=== PATIENT | male | born 1955 | race Caucasian/White ===

== ENCOUNTER 2016-08-10 11:48 | Inpatient (IN) | payer BC ==
[2016-08-10] MEDS ORDERED: NS 0.9% 1000 ML* 1,000 ML IV ONE (12:53)
[2016-08-10] MEDS ORDERED: Diltiazem IV* 5 MG/ML 5 ML VIAL (for loading dose/IV Push) (25 MG) IV SLOW PU ONE (12:57)
[2016-08-10 13:24] LABS: Hematocrit 44 % (42-52); Hemoglobin 14.5 g/dl (14.0-18.0); Mean Corpuscular HGB Conc 33 g/dl (31-36); Mean Corpuscular Hemoglobin 32 pg (27-31); Mean Corpuscular Volume 99 fL (80-94); Mean Platelet Volume 8 um3 (7.4-10.4); Red Blood Count 4.46 10^6/ul (4.0-5.4); Red Cell Distribution Width 14 % (10.5-15); White Blood Count 6.5 10^3/ul (3.5-10.8)
[2016-08-10 13:41] LABS: Albumin 4.3 g/dL (3.2-5.2); BUN/Creatinine Ratio 12.8 (8-20); C Reactive Protein 3.74 mg/L (< 5.00); Calcium 9.5 mg/dL (8.6-10.3); EGFR African American 81.8 (>60); EGFR Non-African American 63.6 (>60); Globulin 2.6 g/dL (2-4); Magnesium 2.2 mg/dL (1.9-2.7); Potassium 4.1 mmol/L (3.5-5.0); Total Bilirubin 1.2 mg/dL (0.2-1.0); Total Protein 6.9 g/dL (6.4-8.9)
--- NOTE | 2016-08-10 13:48 | RAD ---
Indication: Sternal, LEFT chest, and back pain. Former tobacco use. Comparison: October 09, 2014 CT abdomen Technique: Upright AP 1322 hours Report: Clear lungs and pleural spaces. Negative for pneumothorax. The heart, pulmonary vasculature, and mediastinal contours are unremarkable. Unremarkable osseous structures and soft tissue contours. IMPRESSION: No evidence for acute intrathoracic disease.
[2016-08-10] MEDS ORDERED: Metoprolol Tartrate IV* 1 MG/ML 5 ML VIAL IV ONE (14:52)
[2016-08-10] MEDS ORDERED: Acetaminophen TAB* 325 MG PO PRN (14:56)
[2016-08-10] MEDS ORDERED: Ondansetron INJ* 2 MG/ML VIAL IV PRN (14:56)
[2016-08-10] MEDS ORDERED: NS 0.9% 1000 ML* 1,000 ML IV SCH (15:00)
[2016-08-10] MEDS ORDERED: Iohexol 350* (CONTRAST) 500 ML MDV IV ONE (15:03)
--- NOTE | 2016-08-10 15:35 | RAD ---
HISTORY: Shortness of breath COMPARISONS: None TECHNIQUE: Multiple contiguous axial CT scans of the chest were obtained after the administration of nonionic intravenous contrast, timed to the pulmonary arterial phase of contrast enhancement.. Coronal and sagittal multiplanar reformations are also submitted for review. FINDINGS: NECK AND THYROID: The lower neck and thyroid are unremarkable. CHEST WALL: There is no lower cervical, axillary, or supraclavicular lymphadenopathy by size criteria. HEART AND PERICARDIUM: The heart is unremarkable. AORTA AND PULMONARY VASCULATURE: There is no pulmonary arterial filling defect to suggest pulmonary embolism. There is no linear filling defect within the aorta to suggest aortic dissection for the phase of contrast demonstration. MEDIASTINUM: There is no mediastinal lymphadenopathy by size criteria. GANGA: There is no hilar lymphadenopathy by size criteria. AIRWAY AND ESOPHAGUS: The airway is unremarkable, without endobronchial filling defect. The esophagus is grossly normal. LUNG PARENCHYMA: The lungs are clear. PLEURA: No pleural abnormalities are noted. UPPER ABDOMEN: The upper abdomen is unremarkable. BONES AND SOFT TISSUES: Mild degenerative changes are noted OTHER: None. IMPRESSION: NO PULMONARY ARTERIAL FILLING DEFECT TO SUGGEST PULMONARY EMBOLISM
[2016-08-10] MEDS ORDERED: Metoprolol Tartrate IV* 1 MG/ML 5 ML VIAL IV PRN (15:53)
--- NOTE | 2016-08-10 16:24 | ED ---
Maral Enciso Auryana, scribed for Easton Combs MD on 08/10/16 at 1243 . Shortness of Breath - HPI Summary HPI Summary: 60 year old male presents with SOB starting 3 days ago. He states that he was walking up a steep hill while golfing and began to have leg fatigue and palpitations with mid upper stomach/lower chest pain. He believed it was indigestion- rested and improved but symptoms returned later that night and became worse - nausea, chills, diaphoretic, headache, and pain in upper back and left flank with increased fatigue. His symptoms lasted all day and improved over the next few days but today still has chest discomfort in the mid lower sternal area and mid upper back (2/10). PMHx is significant for HTN (no medications - but fluctuates) and prostate CA (stable) but denies any heart problems. FHx is significant is for HTN, and heart issues. Occasionally alcohol use but no history of tobacco or drug use. - History of Current Complaint Chief Complaint: EDShortnessOfBreath Time Seen by Provider: 08/10/16 12:53 Hx Obtained From: Patient Onset/Duration: Lasting Days, Still Present Timing: Constant Current Severity: Moderate Dyspnea At: Exertion Aggrevating Factors: Movement Associated Signs & Symptoms: Chills, Diaphoresis - Allergy/Home Medications Allergies/Adverse Reactions: Allergies Allergy/AdvReac Type Severity Reaction Status Date / Time No Known Allergies Allergy Verified 10/09/14 19:55 Home Medications: Home Medications Fexofenadine (NF) [Josey 180 (NF)] 180 mg PO DAILY PRN 08/10/16 [History Confirmed 08/10/16] PMH/Surg Hx/FS Hx/Imm Hx Endocrine/Hematology History: Denies: Hx Diabetes, Hx Thyroid Disease Cardiovascular History: Denies: Hx Hypertension Respiratory History: Denies: Hx Asthma, Hx Chronic Obstructive Pulmonary Disease (COPD) GI History: Denies: Hx Ulcer - Cancer History Cancer Type, Location and Year: PT HAS STAGE 1 prostate ca - no treatment yet, active observation 07/31 - Surgical History Surgery Procedure, Year, and Place: 2 hernia surgeries. meniscus surgeries Infectious Disease History: No Infectious Disease History: Denies: Hx Hepatitis, Hx Human Immunodeficiency Virus (HIV), History Other Infectious Disease, Traveled Outside the [place] in Last 30 Days - Family History Known Family History: Positive: Cardiac Disease - Social History Occupation: Employed Full-time, Retired Lives: With Family Alcohol Use: None Hx Substance Use: No Substance Use Type: Reports: None Hx Tobacco Use: No Smoking Status (MU): Never Smoked Tobacco Review of Systems Positive: Fatigue, Skin Diaphoresis. Negative: Fever Eyes: Negative ENT: Negative Positive: Palpitations, Chest Pain Positive: Shortness Of Breath Positive: Nausea Genitourinary: Negative Positive: Myalgia - upper back pain, flank Skin: Negative Positive: Headache Psychological: Normal All Other Systems Reviewed And Are Negative: Yes Physical Exam - Summary Physical Exam Summary: VITAL SIGNS: Reviewed. GENERAL: Patient is a well-developed and nourished male who is lying comfortable in the stretcher. Patient is not in any acute respiratory distress. HEAD AND FACE: No signs of trauma. No ecchymosis, hematomas or skull depressions. No sinus tenderness. EYES: PERRLA, EOMI x 2, No injected conjunctiva, no nystagmus. EARS: Hearing grossly intact. Ear canals and tympanic membranes are within normal limits. MOUTH: Oropharynx within normal limits. NECK: Supple, trachea is midline, no adenopathy, no JVD, no carotid bruit, no c- spine tenderness, neck with full ROM. CHEST: Symmetric, no tenderness at palpation LUNGS: Clear to auscultation bilaterally. No wheezing or crackles. CVS: Irregular rate and rhythm, S1 and S2 present, no murmurs or gallops appreciated. ABDOMEN: Soft, non-tender. No signs of distention. No rebound no guarding, and no masses palpated. Bowel sounds are normal. EXTREMITIES: FROM in all major joints, no edema, no cyanosis or clubbing. NEURO: Alert and oriented x 3. No acute neurological deficits. Speech is normal and follows commands. SKIN: Dry and warm Triage Information Reviewed: Yes Vital Signs On Initial Exam: Initial Vitals Temp Pulse Resp BP Pulse Ox 98.6 F 146 20 149/117 99 08/10/16 11:58 08/10/16 11:58 08/10/16 11:58 08/10/16 11:58 08/10/16 11:58 Vital Signs Reviewed: Yes Diagnostics - Vital Signs Vital Signs Temp Pulse Resp BP Pulse Ox 08/10/16 12:03 98.6 F 98 20 149/117 99 08/10/16 11:58 98.6 F 146 20 149/117 99 - Laboratory Lab Results: Lab Results 08/10/16 08/10/16 08/10/16 Range/Units 13:05 13:05 13:05 WBC 6.5 (3.5-10.8) 10^3/ul RBC 4.46 (4.0-5.4) 10^6/ul Hgb 14.5 (14.0-18.0) g/dl Hct 44 (42-52) % MCV 99 H (80-94) fL MCH 32 H (27-31) pg MCHC 33 (31-36) g/dl RDW 14 (10.5-15) % Plt Count 209 (150-450) 10^3/ul MPV 8 (7.4-10.4) um3 Neut % (Auto) 50.4 (38-83) % Lymph % (Auto) 34.4 (25-47) % [place] % (Auto) 10.0 H (1-9) % Eos % (Auto) 4.4 (0-6) % Baso % (Auto) 0.8 (0-2) % Absolute Neuts (auto) 3.3 (1.5-7.7) 10^3/ul Absolute Lymphs (auto) 2.2 (1.0-4.8) 10^3/ul Absolute Monos (auto) 0.6 (0-0.8) 10^3/ul Absolute Eos (auto) 0.3 (0-0.6) 10^3/ul Absolute Basos (auto) 0.1 (0-0.2) 10^3/ul Absolute Nucleated RBC 0.01 10^3/ul Nucleated RBC % 0.2 APTT 28.3 (26.0-36.3) seconds D-Dimer, Quantitative 261 H (Less Than 230) ng/mL Sodium 137 (133-145) mmol/L Potassium 4.1 (3.5-5.0) mmol/L Chloride 104 (101-111) mmol/L Carbon Dioxide 23 (22-32) mmol/L Anion Gap 10 (2-11) mmol/L BUN 15 (6-24) mg/dL Creatinine 1.17 (0.67-1.17) mg/dL Est GFR ( Amer) 81.8 (>60) Est GFR (Non-Af Amer) 63.6 (>60) BUN/Creatinine Ratio 12.8 (8-20) Glucose 91 (70-100) mg/dL Lactic Acid (0.5-2.0) mmol/L Calcium 9.5 (8.6-10.3) mg/dL Magnesium 2.2 (1.9-2.7) mg/dL Total Bilirubin 1.20 H (0.2-1.0) mg/dL AST 41 H (13-39) U/L ALT 65 H (7-52) U/L Alkaline Phosphatase 29 L (34-104) U/L Total Creatine Kinase 97 (10-223) U/L Troponin I 0.00 (<0.04) ng/mL C-Reactive Protein 3.74 (< 5.00) mg/L B-Natriuretic Peptide ( - 100) pg/mL Total Protein 6.9 (6.4-8.9) g/dL Albumin 4.3 (3.2-5.2) g/dL Globulin 2.6 (2-4) g/dL Albumin/Globulin Ratio 1.7 (1-3) Lipase 15 (11.0-82.0) U/L 08/10/16 08/10/16 Range/Units 13:05 13:05 WBC (3.5-10.8) 10^3/ul RBC (4.0-5.4) 10^6/ul Hgb (14.0-18.0) g/dl Hct (42-52) % MCV (80-94) fL MCH (27-31) pg MCHC (31-36) g/dl RDW (10.5-15) % Plt Count (150-450) 10^3/ul MPV (7.4-10.4) um3 Neut % (Auto) (38-83) % Lymph % (Auto) (25-47) % [place] % (Auto) (1-9) % Eos % (Auto) (0-6) % Baso % (Auto) (0-2) % Absolute Neuts (auto) (1.5-7.7) 10^3/ul Absolute Lymphs (auto) (1.0-4.8) 10^3/ul Absolute Monos (auto) (0-0.8) 10^3/ul Absolute Eos (auto) (0-0.6) 10^3/ul Absolute Basos (auto) (0-0.2) 10^3/ul Absolute Nucleated RBC 10^3/ul Nucleated RBC % APTT (26.0-36.3) seconds D-Dimer, Quantitative (Less Than 230) ng/mL Sodium (133-145) mmol/L Potassium (3.5-5.0) mmol/L Chloride (101-111) mmol/L Carbon Dioxide (22-32) mmol/L Anion Gap (2-11) mmol/L BUN (6-24) mg/dL Creatinine (0.67-1.17) mg/dL Est GFR ( Amer) (>60) Est GFR (Non-Af Amer) (>60) BUN/Creatinine Ratio (8-20) Glucose (70-100) mg/dL Lactic Acid 1.2 (0.5-2.0) mmol/L Calcium (8.6-10.3) mg/dL Magnesium (1.9-2.7) mg/dL Total Bilirubin (0.2-1.0) mg/dL AST (13-39) U/L ALT (7-52) U/L Alkaline Phosphatase (34-104) U/L Total Creatine Kinase (10-223) U/L Troponin I (<0.04) ng/mL C-Reactive Protein (< 5.00) mg/L B-Natriuretic Peptide 371 H ( - 100) pg/mL Total Protein (6.4-8.9) g/dL Albumin (3.2-5.2) g/dL Globulin (2-4) g/dL Albumin/Globulin Ratio (1-3) Lipase (11.0-82.0) U/L Result Diagrams: 08/10/16 13:05 08/10/16 13:05 Lab Statement: Any lab studies that have been ordered have been reviewed, and results considered in the medical decision making process. - Radiology CXR Xray Interpretation: No Acute Changes Radiology Interpretation Completed By: Radiologist - CT CTA CHEST CT Interpretation: No Acute Changes - IMPRESSION: NO PULMONARY ARTERIAL FILLING DEFECT TO SUGGEST PULMONARY EMBOLISM CT Interpretation Completed By: Radiologist - EKG 12:37 EKG Interpretation: a-fib at 137bpm Course/Dx - Course Assessment/Plan: 60 year old male presents with SOB starting 3 days ago. He states that he was walking up a steep hill while golfing and began to have leg fatigue and palpitations with mid upper stomach/lower chest pain. He believed it was indigestion- rested and improved but symptoms returned later that night and became worse - nausea, chills, diaphoresis, headache, and pain in upper back and left flank with increased fatigue. His symptoms lasted all day and improved over the next few days but today still has chest discomfort in the mid lower sternal area and mid upper back (2/10). PMHx is significant for HTN (no medications - but fluctuates) and prostate CA (stable) but denies any heart problems. FHx is significant is for HTN, and heart issues. Occasionally alcohol use but no history of tobacco or drug use. Blood test are found within normal limits except for increased LFTs and BNP 371. CXR no acute disease. EKG: Atrial fib w/ RVR. In the ED course he was given IVF and Cardizem. HR has decreased to 90s. I discuss my physical exam, findings and test results with Dr. Vogt from the hospitalist services and she agrees to admit patient to his services. Patient is hemodynamically stable alert and oriented x 3. - Diagnoses Provider Diagnoses: Atrial fib w/ RVR - Physician Notifications Discussed Care of Patient With: DR. VOGT Time Discussed With Above Provider: 13:57 - agrees to admit patient Instructed by Provider To: Admit As Observation Discharge - Discharge Plan Condition: Stable Disposition: ADMITTED TO [facility] The documentation as recorded by the Maral nur Auryana accurately reflects the service I personally performed and the decisions made by me, Easton Combs MD.
[2016-08-10] MEDS: Metoprolol Tartrate TAB* 25 MG PO SCH ×2 (16:36→21:08)
[2016-08-10] MEDS: Rivaroxaban TAB(*) 20 MG TAB PO SCH (16:36)
--- NOTE | 2016-08-10 22:03 | HP ---
HISTORY AND PHYSICAL: DATE OF ADMISSION: 08/10/16 PRIMARY CARE PROVIDER: Dr. Nugent. HEALTHCARE PROXY: His , Kateryna. CODE STATUS: Full. SOURCE OF INFORMATION: History obtained from interview with the patient and review of past medical records. RELIABILITY: Very good. CHIEF COMPLAINT: Dyspnea on exertion. HISTORY OF PRESENT ILLNESS: This is a 60-year-old man, past medical history including prostate cancer since 2010, undergoing active surveillance, no surgeries or other interventions, had been in his usual state of health until June 03, he traveled to [place], started noticing sensation of feeling " short winded" with increased dyspnea on exertion, was associated with sneezing at that time and he thought it was related to the pollen and change in the climate while being in [place]. Sensation of feeling short winded continued upon his return on June 13 and was associated with coughing; however, had some relief, although not complete resolution after starting Josey. He noted that the shortness of breath was worse with exertion and he he had increasing difficulty such that he became short of breath with walking 1 flight of stairs whereas previously, he was very active. Notes that he was skiing 4 to 5 days per week quite aggressively over the winter. On Tuesday, 2 days prior to presentation, he noticed worsening dyspnea on exertion while walking up the hill and golfing associated with epigastric pain. Lynx like indigestion overall with a sensation of feeling lousy and nausea. No lightheadedness or palpitations. Proceeded to go home. Did develop nausea and some sweats and chills, went to bed early around 2 p.m. and slept to 7 a.m. the next day which was the day prior to admission. The day prior to admission, he felt better and today he continued to feel better; however, did notice lower chest discomfort associated with pain under his left scapula. He notes that the pain is coming and going, sometimes better with exertion, but worse with walking up hills. In the emergency room, he was found in atrial fibrillation with rates up to 150 beats per minute. Hospitalist service was consulted for admission. PAST MEDICAL HISTORY: Includes: 1. Prostate cancer, ongoing active surveillance, diagnosed in 2010. 2. Herpes zoster. 3. Borderline hypertension, untreated. 4. Right torn meniscus. 5. Hernia repair, left and right. 6. Skin cancer including squamous cell carcinoma removed from his head and chest as well as basal cell carcinoma. MEDICATIONS: Josey. ALLERGIES: No known drug allergies. FAMILY HISTORY: Mother and father had hypertension. Father had CAD with 4- vessel bypass. He is in his 80s currently. SOCIAL HISTORY: Smoked for 25 years, 2 packs per day, quit 23 years prior. Drinks 4 to 6 alcoholic drinks per day, more on the weekends. 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 REVIEW OF SYSTEMS: As per HPI. Otherwise, all other review of systems negative. PHYSICAL EXAMINATION GENERAL: Sitting up in bed, interactive, pleasant, in no apparent distress. VITAL SIGNS: When seen by this author, 124/84, heart rate is oscillating between 90 and 140, respiratory rate is 16. T-max in the emergency room 98.6. 99% on room air. HEENT: Oropharynx is clear. Moist mucous membranes. Sclerae anicteric. NECK: Has JVD to the angle of the jaw. LUNGS: Clear to auscultation. HEART: He has irregularly irregular heart rate. Difficult to auscultate murmurs with rapid rate. ABDOMEN: Soft, nontender, nondistended. EXTREMITIES: Warm and well perfused. He has 1+ lower extremity edema. NEUROLOGIC: He has no apparent anxiety, agitation, or depression. LABORATORY DATA/DIAGNOSTIC STUDIES: Labs reviewed. D-dimer 261. White blood cell count 6.5, hemoglobin 14.5, MCV of 99, and platelets 209. Sodium 137, potassium 4.1, chloride 104, bicarb 23, BUN 15, creatinine 1.17, lactic acid 1.2. Total bilirubin 1.2, AST 41, ALT 65, alk phos 29. Troponin I of 0.00. Lipase is 15. Data reviewed. EKG: Atrial fibrillation, ventricular rate, 137 left axis. Good R- wave progression. No ST or T-wave changes. Chest x-ray: No evidence for acute intrathoracic disease. ASSESSMENT AND PLAN: This is a 60-year-old man presenting with dyspnea on exertion, found in atrial fibrillation with rapid ventricular response. Atrial fibrillation with rapid ventricular response: Received 20 mg of IV diltiazem with good control in the emergency room. Will receive additional IV metoprolol 5 mg now. Plan to continue p.o. medications, can admit to [address] [place] [address], will give additional IV metoprolol as needed with standing p.o. Toprol. I discussed with Dr. Slater. I will make the patient n.p.o. after midnight. Plan for a CHARLES cardioversion tomorrow if he remains in atrial fibrillation. Dyspnea on exertion: Maybe related to atrial fibrillation alone. Atrial fibrillation with decreasing pump function, pulmonary embolism, potentially underlying ischemic disease. We will check CTA at this time. Start Xarelto after dose can be ascertained based on presence or absence of pulmonary embolism. CHARLES tomorrow with potential cardioversion. No CHARLES performed. We will plan on transthoracic echocardiogram. If all of the above are negative, i.e., normal, pump function, no pulmonary embolism, can consider outpatient cardiac stress test. Hypertension: Currently will be controlled with rate controlling medications. DVT prophylaxis will be Xarelto. Code status: Full. [id number]/[facility] #: [id number] MTDD
--- NOTE | 2016-08-10 23:11 | CONS ---
CARDIOLOGY CONSULTATION: DATE OF CONSULT: 08/10/16 INDICATION FOR CONSULTATION: Atrial fibrillation. HISTORY OF PRESENT ILLNESS: The patient is a 60-year-old gentleman with a history of BPH who came to the emergency room because of chest pain. The patient states that over the last 4 months or so, he has been having slight increase in shortness of breath. He just feels like he is more short of breath when he goes out for golf and does other activities. However, this past Tuesday , he was out golfing. He was trying to walk up a hill at the golf course and became short of breath and had chest pain. He had chest pain the rest of the round and has been uncomfortable for the past couple of days. The patient states that he slept poorly on Tuesday night. He woke with the same mild chest discomfort and some increased shortness of breath with exertion. The patient stated that this chest discomfort was epigastric in origin. It did radiate around to his left side. It was more severe on Tuesday, but has been almost constant since Tuesday. The patient woke up this morning with the same discomfort and feeling short of breath and was instructed to come to the emergency room. On arrival to the emergency room, he was in atrial fibrillation with rapid ventricular response. He denied any history of palpitations. No lightheadedness or dizziness. No lower extremity edema. No orthopnea. PAST MEDICAL HISTORY: Unremarkable. Borderline hypertension and BPH. PAST SURGICAL HISTORY: None. OUTPATIENT MEDICATIONS: None. ALLERGIES: None. FAMILY HISTORY: No family history of early coronary artery disease or cardiac arrhythmia. SOCIAL HISTORY: Denies tobacco or alcohol use. He exercises on a regular basis. REVIEW OF SYSTEMS: Negative for fevers or chills. Negative for nausea or vomiting. Negative for changes in bowel or bladder habits. PHYSICAL EXAM: Vital signs: Height is 6 feet 1 inch, weight is 190 pounds, temperature 98.6, heart rate is 130, respiratory rate is 18, and blood pressure 149/97. HEENT: Sclerae anicteric. Oropharynx is pink without erythema. Neck : Carotids are 2+ without bruits. JVD is normal. Thyroid is normal. Cardiac Exam: Tachycardic. S1, S2 without any murmurs, rubs, or gallops. Lungs: Clear to auscultation bilaterally. No dullness to percussion. Abdomen: Soft, nontender, and nondistended with normoactive bowel sounds. Extremities show no edema. He has 2+ pulses throughout. The patient is awake, alert, and oriented. He moves all 4 extremities equally. DIAGNOSTIC STUDIES/LAB DATA: Chemistries within normal limits. BUN 15, creatinine 1.17. Troponin 0.0. BNP slightly elevated at 571. CBC within normal limits. EKG demonstrates atrial fibrillation with rapid ventricular response. IMPRESSION: A 60-year-old gentleman with a very little past medical history who came to the emergency room because of chest pain. He was found to be in atrial fibrillation with rapid ventricular response. The patient denied any episodes of palpitations. He denied any lightheadedness or dizziness. He denied any syncope. At this time, the patient is being admitted to the hospital. He is going to be started on Xarelto 20 mg a day. The patient will be scheduled for a transesophageal echocardiogram and cardioversion tomorrow morning. If his LV function is relatively normal, I would recommend starting Multaq on the patient. If his LV function is depressed, I would recommend amiodarone. CC: Bonilla Nugent MD* [id number]/[facility] #: [id number] MTDD
[2016-08-11 01:56] LABS: Urine Bilirubin Negative (Negative); Urine Glucose Negative (Negative); Urine Nitrite Negative (Negative)
[2016-08-11] MEDS: Metoprolol Tartrate TAB* 25 MG PO SCH ×4 (03:04→22:08)
[2016-08-11] MEDS ORDERED: Midazolam* 1 MG/ML 5 ML VIAL (5 MG) ONE (09:54)
[2016-08-11] MEDS ORDERED: fentaNYL* 50 MCG/ML 2 ML VIAL (100 MCG VIAL) ONE (09:55)
[2016-08-11] MEDS ORDERED: Flumazenil* 0.1 MG/ML 5 ML MDV ONE (09:55)
[2016-08-11] MEDS ORDERED: Naloxone* 0.4 MG/ML 1 ML VIAL ONE (09:55)
[2016-08-11] MEDS ORDERED: Lidocaine 2% VISCOUS* 15 ML UDC ONE (09:56)
--- NOTE | 2016-08-11 10:59 | PN ---
Subjective Date of Service: 08/11/16 - CC: SOB Interval History: Breathing was better than admission, no new c/o. Comfortable at rest. Medications Active Medications: Acetaminophen (Tylenol Tab*) 650 mg PO Q4H PRN PRN Reason: FEVER/PAIN Sodium Chloride (Ns 0.9% 1000 Ml*) 1,000 mls @ 100 mls/hr IV PER RATE [facility] Last Admin: 08/11/16 03:03 Dose: 100 mls/hr Metoprolol Tartrate (Lopressor Tab*) 25 mg PO Q6H [facility] Last Admin: 08/11/16 03:04 Dose: 25 mg Metoprolol Tartrate (Lopressor Iv*) 5 mg IV Q6H PRN PRN Reason: TACHYCARDIA Ondansetron HCl (Zofran Inj*) 4 mg IV Q4H PRN PRN Reason: NAUSEA/VOMITING Rivaroxaban (Xarelto (*)) 20 mg PO DAILY@1700 [facility] Last Admin: 08/10/16 16:36 Dose: 20 mg Objective Vital Signs: Temp Pulse Resp BP Pulse Ox 98.2 F 152 16 113/82 95 08/11/16 07:22 08/11/16 07:22 08/11/16 08:00 08/11/16 07:22 08/11/16 07:22 Appearance: fit appearing older middle aged gentleman, in no acute distress, lying at 20 degrees comfortabley. Eyes: No Scleral Icterus, PERRLA Ears/Nose/Mouth/Throat: Clear Oropharnyx, Mucous Membranes Moist Neck: NL Appearance and Movements; NL JVP Respiratory: Symmetrical Chest Expansion and Respiratory Effort, Clear to Auscultation Cardiovascular: - - Irregularly irregular and tachycardic. Abdominal: NL Sounds; No Tenderness; No Distention, No Hepatosplenomegaly Extremities: No Edema, No Clubbing, Cyanosis Skin: No Rash or Ulcers Neurological: Alert and Oriented x 3, NL Muscle Strength and Tone Lines/Tubes/Other Access: Clean, Dry and Intact Peripheral IV Laboratory Results: APTT 28.3 seconds (26.0-36.3) 08/10/16 13:05 Total Bilirubin 1.20 mg/dL (0.2-1.0) H 08/10/16 13:05 AST 41 U/L (13-39) H 08/10/16 13:05 ALT 65 U/L (7-52) H 08/10/16 13:05 Alkaline Phosphatase 29 U/L (34-104) L 08/10/16 13:05 B-Natriuretic Peptide 371 pg/mL (-100) H 08/10/16 13:05 Total Protein 6.9 g/dL (6.4-8.9) 08/10/16 13:05 Albumin 4.3 g/dL (3.2-5.2) 08/10/16 13:05 Globulin 2.6 g/dL (2-4) 08/10/16 13:05 Albumin/Globulin Ratio 1.7 (1-3) 08/10/16 13:05 08/10/16 08/10/16 16:35 19:14 Troponin I 0.00 0.00 Diagnostic Imaging: CHARLES (transesophogeal echo): EF 25%, global hypokinesis, mild to mod MR and TR, no clot in LA appendage. EKG Data: Monitor: Afib, RVR 100-115 bpm, post electrical CV NSR 75 bpm. Assessment/Plan 60 yo male with afib, RVR uncertain duration, based on history possibly since May, s/p CHARLES guided cardioversion today, succesful, newly diagnosed severe cardiomyopathy. Points of Discussion: Paroxysmal atrial fibrillation: Continue Xarelto for asymptomatic afib. He may benefit from an antiarrhythmic, Multaq or amiodarone safe for low EF however LFT's mildly increased (CHF and/or EtOH are risks). CM: Most likely tachycardic induced but there is a large differential. Continue metoprolol, long acting best, can convert to QAM. Add ACEI today, consider Zestril 5 mg qhs. I discussed avoidance of alcohol with him. He snores, but no apnea history (per ), good energy levels so I don't feel sleep referral needed now. Option of overnight oximetry screen in or out patient. As troponins negative, OK for outpatient ischemic workup, and his EF may improve with rhythm and rate control.
--- NOTE | 2016-08-11 11:41 | PN ---
Subjective Date of Service: 08/11/16 Interval History: Patient seen and examined at bedside. He is still somewhat drowsy following sedation from his cardioversion. Denies CP, SOB, dizziness, palpitations. No complaints. at bedside. Family History: Unchanged from Admission Social History: Unchanged from Admission Past Medical History: Unchanged from Admission Objective Active Medications: Acetaminophen (Tylenol Tab*) 650 mg PO Q4H PRN PRN Reason: FEVER/PAIN Sodium Chloride (Ns 0.9% 1000 Ml*) 1,000 mls @ 100 mls/hr IV PER RATE [facility] Last Admin: 08/11/16 03:03 Dose: 100 mls/hr Lisinopril (Prinivil Tab*) 5 mg PO BEDTIME [facility] Metoprolol Succinate (Toprol Xl Tab*) 100 mg PO DAILY [facility] Metoprolol Tartrate (Lopressor Tab*) 25 mg PO Q6H [facility] Stop: 08/12/16 00:00 Last Admin: 08/11/16 03:04 Dose: 25 mg Metoprolol Tartrate (Lopressor Iv*) 5 mg IV Q6H PRN PRN Reason: TACHYCARDIA Ondansetron HCl (Zofran Inj*) 4 mg IV Q4H PRN PRN Reason: NAUSEA/VOMITING Rivaroxaban (Xarelto (*)) 20 mg PO DAILY@1700 [facility] Last Admin: 08/10/16 16:36 Dose: 20 mg Vital Signs 08/10/16 08/10/16 08/10/16 15:00 15:18 15:29 Temperature 98.6 F Pulse Rate 53 98 Respiratory 18 20 Rate Blood Pressure 143/97 149/117 137/105 (mmHg) O2 Sat by Pulse 98 99 Oximetry 08/10/16 08/10/16 08/10/16 15:30 15:31 16:00 Temperature Pulse Rate 98 73 Respiratory 18 18 Rate Blood Pressure 130/89 118/93 (mmHg) O2 Sat by Pulse 97 97 Oximetry 08/10/16 08/10/16 08/10/16 16:18 19:52 20:00 Temperature 99.2 F 98.4 F Pulse Rate 90 62 Respiratory 18 18 16 Rate Blood Pressure 131/92 137/92 (mmHg) O2 Sat by Pulse 100 98 Oximetry 08/10/16 08/11/16 08/11/16 23:36 03:43 04:49 Temperature 98.5 F 98.1 F Pulse Rate 65 71 Respiratory 16 16 16 Rate Blood Pressure 122/81 126/89 (mmHg) O2 Sat by Pulse 99 94 Oximetry 08/11/16 08/11/16 07:22 08:00 Temperature 98.2 F Pulse Rate 152 Respiratory 20 16 Rate Blood Pressure 113/82 (mmHg) O2 Sat by Pulse 95 Oximetry Oxygen Devices in Use Now: None Appearance: Male patient, lying in bed, NAD Eyes: PERRLA Ears/Nose/Mouth/Throat: Mucous Membranes Moist Neck: NL Appearance and Movements; NL JVP Respiratory: Symmetrical Chest Expansion and Respiratory Effort, Clear to Auscultation Cardiovascular: NL Sounds; No Murmurs; No JVD, RRR Abdominal: NL Sounds; No Tenderness; No Distention Extremities: No Edema Neurological: - - drowsy but oriented x 3 Lines/Tubes/Other Access: Clean, Dry and Intact Peripheral IV Nutrition: Taking PO's Result Diagrams: 08/10/16 13:05 08/10/16 13:05 Additional Lab and Data: Lab Results 08/10/16 08/10/16 08/10/16 Range/Units 13:05 13:05 13:05 WBC 6.5 (3.5-10.8) 10^3/ul RBC 4.46 (4.0-5.4) 10^6/ul Hgb 14.5 (14.0-18.0) g/dl Hct 44 (42-52) % MCV 99 H (80-94) fL MCH 32 H (27-31) pg MCHC 33 (31-36) g/dl RDW 14 (10.5-15) % Plt Count 209 (150-450) 10^3/ul MPV 8 (7.4-10.4) um3 Neut % (Auto) 50.4 (38-83) % Lymph % (Auto) 34.4 (25-47) % [place] % (Auto) 10.0 H (1-9) % Eos % (Auto) 4.4 (0-6) % Baso % (Auto) 0.8 (0-2) % Absolute Neuts (auto) 3.3 (1.5-7.7) 10^3/ul Absolute Lymphs (auto) 2.2 (1.0-4.8) 10^3/ul Absolute Monos (auto) 0.6 (0-0.8) 10^3/ul Absolute Eos (auto) 0.3 (0-0.6) 10^3/ul Absolute Basos (auto) 0.1 (0-0.2) 10^3/ul Absolute Nucleated RBC 0.01 10^3/ul Nucleated RBC % 0.2 APTT 28.3 (26.0-36.3) seconds D-Dimer, Quantitative 261 H (Less Than 230) ng/mL Sodium 137 (133-145) mmol/L Potassium 4.1 (3.5-5.0) mmol/L Chloride 104 (101-111) mmol/L Carbon Dioxide 23 (22-32) mmol/L Anion Gap 10 (2-11) mmol/L BUN 15 (6-24) mg/dL Creatinine 1.17 (0.67-1.17) mg/dL Est GFR ( Amer) 81.8 (>60) Est GFR (Non-Af Amer) 63.6 (>60) BUN/Creatinine Ratio 12.8 (8-20) Glucose 91 (70-100) mg/dL Lactic Acid (0.5-2.0) mmol/L Calcium 9.5 (8.6-10.3) mg/dL Magnesium 2.2 (1.9-2.7) mg/dL Total Bilirubin 1.20 H (0.2-1.0) mg/dL AST 41 H (13-39) U/L ALT 65 H (7-52) U/L Alkaline Phosphatase 29 L (34-104) U/L Total Creatine Kinase 97 (10-223) U/L Troponin I 0.00 (<0.04) ng/mL C-Reactive Protein 3.74 (< 5.00) mg/L B-Natriuretic Peptide ( - 100) pg/mL Total Protein 6.9 (6.4-8.9) g/dL Albumin 4.3 (3.2-5.2) g/dL Globulin 2.6 (2-4) g/dL Albumin/Globulin Ratio 1.7 (1-3) Lipase 15 (11.0-82.0) U/L 08/10/16 08/10/16 Range/Units 13:05 13:05 WBC (3.5-10.8) 10^3/ul RBC (4.0-5.4) 10^6/ul Hgb (14.0-18.0) g/dl Hct (42-52) % MCV (80-94) fL MCH (27-31) pg MCHC (31-36) g/dl RDW (10.5-15) % Plt Count (150-450) 10^3/ul MPV (7.4-10.4) um3 Neut % (Auto) (38-83) % Lymph % (Auto) (25-47) % [place] % (Auto) (1-9) % Eos % (Auto) (0-6) % Baso % (Auto) (0-2) % Absolute Neuts (auto) (1.5-7.7) 10^3/ul Absolute Lymphs (auto) (1.0-4.8) 10^3/ul Absolute Monos (auto) (0-0.8) 10^3/ul Absolute Eos (auto) (0-0.6) 10^3/ul Absolute Basos (auto) (0-0.2) 10^3/ul Absolute Nucleated RBC 10^3/ul Nucleated RBC % APTT (26.0-36.3) seconds D-Dimer, Quantitative (Less Than 230) ng/mL Sodium (133-145) mmol/L Potassium (3.5-5.0) mmol/L Chloride (101-111) mmol/L Carbon Dioxide (22-32) mmol/L Anion Gap (2-11) mmol/L BUN (6-24) mg/dL Creatinine (0.67-1.17) mg/dL Est GFR ( Amer) (>60) Est GFR (Non-Af Amer) (>60) BUN/Creatinine Ratio (8-20) Glucose (70-100) mg/dL Lactic Acid 1.2 (0.5-2.0) mmol/L Calcium (8.6-10.3) mg/dL Magnesium (1.9-2.7) mg/dL Total Bilirubin (0.2-1.0) mg/dL AST (13-39) U/L ALT (7-52) U/L Alkaline Phosphatase (34-104) U/L Total Creatine Kinase (10-223) U/L Troponin I (<0.04) ng/mL C-Reactive Protein (< 5.00) mg/L B-Natriuretic Peptide 371 H ( - 100) pg/mL Total Protein (6.4-8.9) g/dL Albumin (3.2-5.2) g/dL Globulin (2-4) g/dL Albumin/Globulin Ratio (1-3) Lipase (11.0-82.0) U/L Assess/Plan/Problems-Billing Assessment: Mr. Dial is a 60 yo male with a PMH of prostate cancer, borderline HTN, and herpes zoster, who presented to the ED on 08/10 with concern for dyspnea with exertion; in the ED, patient was found to be in afib with RVR. - Patient Problems (1) Atrial fibrillation with rapid ventricular response Code(s): I48.91 - UNSPECIFIED ATRIAL FIBRILLATION Comment: S/p cardioversion today, now in sinus rhythm Continue Xarelto, metoprolol (will switch to long-acting in AM) Cardiology recommends anti-arrhythmic, either Multaq or Amiodarone Will initiate once patient is alert enough to understand benefits and risks of each medication. (2) Dyspnea on exertion Code(s): R06.09 - OTHER FORMS OF DYSPNEA Comment: Patient with cardiomyopathy CHARLES shows EF 25%, global hypokinesis, mild to mod MR and TR Continue beta-zonia, start LISETH-I Outpatient cardiology follow-up, ischemic workup as outpatient. Check overnight oximetry to eval for SERENA CTA negative for PE (3) HTN (hypertension) Code(s): I10 - ESSENTIAL (PRIMARY) HYPERTENSION Comment: Not previously on medication Controlled with metoprolol Continue to monitor with addition of Zestril this evening. (4) Prostate cancer Code(s): C61 - MALIGNANT NEOPLASM OF PROSTATE Comment: Continue outpatient f/u. (5) DVT prophylaxis Code(s): DGH6366 - Comment: Xarelto Status and Disposition: Inpatient. D/c to home, potentially tomorrow.
--- NOTE | 2016-08-11 11:41 | TEE ---
Patient: DANILO CASTAÑEDA [facility] Rec#: [id number] : 1955 Date: 08/11/2016 Age: 60y Height: 186 cm / 73.2 in Weight: 86 kg / 189.5 lbs Sex: M BSA: 2.11 Room#: 432 Admit Date#: 08/10/2016 Type: Inpatient Referring: Jose Manuel Slater MD Performing: Ángela Pino MD Reading: Ángela Pino MD [employer] Professor: Shweta Rodriguez RDCS,RDMS Nurse: Willow Garcia RN Transesophageal Echocardiogram Indication: AFIB BP: 134/86 HR: 122 Rhythm: A-Fib Findings History: HTN, SOB, CP, ETOH Technical Comments: The study quality is good. Left Ventricle: The left ventricular chamber size is normal. There is severely decreased left ventricular systolic function. The estimated ejection fraction is 20-25%. The assessment of diastolic function is non-diagnostic. Left Atrium: The left atrium is mild to moderately dilated. The left atrial appendage velocity is normal. There is no thrombus visualized in the left atrial appendage. Right Ventricle: The right ventricular cavity size is normal. The right ventricular global systolic function is moderately reduced. Right Atrium: The right atrium is mild to moderately dilated. A patent foramen ovale is not demonstrated with color Doppler and agitated contrast. Aortic Valve: The aortic valve is trileaflet. There is no evidence of aortic valve thickening. There is aortic annular calcification. There is no evidence of aortic regurgitation. There is no evidence of aortic stenosis. Mitral Valve: There is mitral annular calcification. The mitral valve leaflets are mildly thickened. There is mild to moderate mitral regurgitation. There is no evidence of mitral stenosis. Tricuspid Valve: The tricuspid valve leaflets are normal. There is mild to moderate tricuspid regurgitation. No pulmonary hypertension is noted. Pulmonic Valve: The pulmonic valve appears normal. There is a trace pulmonic regurgitation. Pericardium: There is no significant pericardial effusion. Aorta: There is no dilatation of the ascending aorta. There is mild dilatation of the aortic root. Pulmonary Artery: The main pulmonary artery appears normal. Venous: The inferior vena cava appears normal. The flow pattern of the pulmonary veins appear normal. 3 out of 4 well visualized The superior vena cava appears normal. CHARLES Procedures: All standard views were attempted within the limitations of patient tolerance and safety. History and physical as well as labs were reviewed. The patient was in a fasting state. Risks and benefits of the procedure, including alternatives, were discussed and written informed consent was obtained. The patient and/or their health care field service representative expressed understanding of the procedure, risks and benefits. Baseline and continuous monitoring of blood pressure, heart rate, pulse oximetry and heart rhythm was performed throughout the procedure. The appropriate time-out procedure was performed as per [facility] protocol. The patient was placed in the left lateral decubitus position. The patient's posterior pharynx was anesthetized with 20ml of 2% viscous lidocaine. The patient received IV Midazolam with a total dose of 8 mg The patient received IV Fentanyl with a total dose of 75 mcg An oral bite block was inserted for protection of oral dentition. The multiplane transesophageal echocardiogram probe was inserted through the posterior oropharynx and advanced into the esophagus without difficulty. Multiple 2D images were obtained of the heart and its related structures. Color flow Doppler was used for evaluation. Spectral Doppler was also used. The atrial septum was interrogated with color flow Doppler. At the conclusion of the procedure the probe was removed with continuous suction without complications. The patient tolerated the procedure with no apparent complications. Contrast: Intravenous agitated saline contrast was used to assess intracardiac shunting. Image 45 Conclusions There is severely decreased left ventricular systolic function, global hypokinesis. The estimated ejection fraction is 20-25%. The right ventricular global systolic function is moderately reduced globally. The left atrium is mild to moderately dilated. The right atrium is mild to moderately dilated. The aortic valve is trileaflet, normal structure and function. There is mild to moderate mitral regurgitation. There is mild to moderate tricuspid regurgitation. No pulmonary hypertension is noted, may be underestimated. No prior echo to compare. The patient was in atrial fibrillation throughout the study. Measurements Name Value Normal Range Aortic Annulus 2.1 cm (1.4 - 2.6) Ao root diameter (2D) 3.8 cm (2.1 - 3.5) Ascending Ao 3.4 cm (2.1 - 3.4) Name Value Normal Range MV E-wave Vmax 0.6 m/sec - MV deceleration time 78 msec - Name Value Normal Range TR Vmax 2.1 m/sec - TR peak gradient 18 mmHg - RAP 3 mmHg - RVSP 21 mmHg -
[2016-08-11] MEDS: Rivaroxaban TAB(*) 20 MG TAB PO SCH (17:40)
--- NOTE | 2016-08-11 18:24 | PN ---
Hospitalist Progress Note Spoke with patient and , Kateryna, at length about atrial fibrillation and cardiomyopathy. Both were able to verbalize understanding of condition and medications. Patient was advised not to drink and concern was expressed for his LFTs. The patient recognizes that alcohol cessation is important and is willing to commit to this. Patient in agreement with amiodarone and will start this evening. Side effect profile reviewed. Risks and benefits of Xarelto also reviewed and risk of bleeding vs. stroke risk in asymptomatic atrial fibrillation also discussed. Patient verbalized understanding of all of this. Patient denies any acute complaints. Continue to monitor. Amiodarone started at 200 mg BID, which I did confirm with on-call sheet heater, Dr. Puga. 25 minutes spent in discussion and teaching.
[2016-08-11] MEDS: Lisinopril TAB* 5 MG PO SCH (20:59)
[2016-08-11] MEDS: Amiodarone TAB* 200 MG PO SCH (20:59)
--- NOTE | 2016-08-11 23:32 | CARD ---
CC: Dr. Slater; Primary Care Physician PROCEDURE REPORT: DATE OF PROCEDURE: 08/11/16 PROCEDURE: Electrical cardioversion. PREPROCEDURE DIAGNOSIS: Atrial fibrillation. POSTPROCEDURE DIAGNOSIS: Atrial fibrillation. INDICATION: The patient throughout both transesophageal echo and cardioversion received a total of 10 mg of Versed and 75 mcg of fentanyl. The transesophageal echo was done and documented separately but no evidence of thrombus in the left atrial appendage was noted (ejection fraction 25%). A deci jackie was made to proceed with electrical cardioversion. DESCRIPTION OF PROCEDURE: AP patches were placed and 150 joules was synchronously delivered across the chest wall with successful cardioversion. Currently, the patient is in sinus rhythm at 72 beats a minute with a blood pressure of 125/77, sats 94% on 2 L. He was hemodynamically stable throughou t both procedures and there were no complications. CONCLUSION: Successful cardioversion from atrial fibrillation and rapid ventricular rate to normal sinus rhythm. [id number]/[facility] #: [id number]
[2016-08-12 06:22] LABS: Calcium 8.2 mg/dL (8.6-10.3); EGFR African American 71.8 (>60); EGFR Non-African American 55.8 (>60); Potassium 3.9 mmol/L (3.5-5.0)
[2016-08-12] MEDS ORDERED: Potassium Chlor TAB* 20 MEQ TAB.ER PO ONE (07:46)
[2016-08-12] MEDS ORDERED: Metoprolol Succinate XL TAB* 100 MG PO SCH (09:00)
--- NOTE | 2016-08-12 09:46 | PN ---
Subjective Date of Service: 08/12/16 Interval History: Patient seen and examined at bedside. Patient expressed concern for "red blotchiness to neck and upper chest." He denies itching, swelling, pain, or difficulty breathing. Denies CP, fever/ chills. He does endorse getting "a lot of sun" and "a little sunburn" over last weekend. There is a white patch in the folds of his neck with surrounding redness, which is an area that does not receive sun exposure. He does not endorse any other complaints. Skin examined by myself and with attending Dr. Ozuna. Telemetry: SR 60s Family History: Unchanged from Admission Social History: Unchanged from Admission Past Medical History: Unchanged from Admission Objective Active Medications: Acetaminophen (Tylenol Tab*) 650 mg PO Q4H PRN PRN Reason: FEVER/PAIN Amiodarone HCl (Cordarone Tab*) 200 mg PO BID [facility] Last Admin: 08/11/16 20:59 Dose: 200 mg Lisinopril (Prinivil Tab*) 5 mg PO BEDTIME [facility] Last Admin: 08/11/16 20:59 Dose: 5 mg Metoprolol Succinate (Toprol Xl Tab*) 100 mg PO DAILY [facility] Metoprolol Tartrate (Lopressor Iv*) 5 mg IV Q6H PRN PRN Reason: TACHYCARDIA Ondansetron HCl (Zofran Inj*) 4 mg IV Q4H PRN PRN Reason: NAUSEA/VOMITING Rivaroxaban (Xarelto (*)) 20 mg PO DAILY@1700 [facility] Last Admin: 08/11/16 17:40 Dose: 20 mg Vital Signs 08/11/16 08/11/16 08/11/16 12:15 13:01 14:23 Temperature 97.7 F 97.3 F 98.0 F Pulse Rate 73 68 86 Respiratory 16 20 16 Rate Blood Pressure 122/81 121/79 128/72 (mmHg) O2 Sat by Pulse 99 100 98 Oximetry 08/11/16 08/11/16 08/11/16 16:01 19:13 20:00 Temperature 97.7 F 98.1 F Pulse Rate 75 69 Respiratory 18 16 18 Rate Blood Pressure 123/80 115/89 (mmHg) O2 Sat by Pulse 98 99 Oximetry 08/11/16 08/11/16 08/11/16 21:01 22:05 23:46 Temperature 98.2 F 97.7 F Pulse Rate 72 80 72 Respiratory 18 16 Rate Blood Pressure 138/91 121/73 117/86 (mmHg) O2 Sat by Pulse 99 96 Oximetry 08/12/16 08/12/16 08/12/16 03:31 07:43 08:00 Temperature 97.4 F 98.1 F Pulse Rate 61 61 Respiratory 16 16 16 Rate Blood Pressure 93/58 106/67 (mmHg) O2 Sat by Pulse 93 98 Oximetry Oxygen Devices in Use Now: None Appearance: Male patient, sitting in chair, watching TV, NAD Eyes: PERRLA Ears/Nose/Mouth/Throat: Mucous Membranes Moist Neck: NL Appearance and Movements; NL JVP Respiratory: Symmetrical Chest Expansion and Respiratory Effort, Clear to Auscultation Cardiovascular: NL Sounds; No Murmurs; No JVD, RRR Abdominal: NL Sounds; No Tenderness; No Distention Extremities: No Edema Skin: - - Patient with blanchable redness and discoloration to neck and chest. Skin is smooth, no tenderness or blistering noted. No wheals or urticaria noted. Neurological: Alert and Oriented x 3, NL Muscle Strength and Tone Lines/Tubes/Other Access: Clean, Dry and Intact Peripheral IV Nutrition: Taking PO's Result Diagrams: 08/10/16 13:05 08/12/16 05:37 Additional Lab and Data: Lab Results 08/10/16 08/10/16 08/10/16 Range/Units 13:05 13:05 13:05 WBC 6.5 (3.5-10.8) 10^3/ul RBC 4.46 (4.0-5.4) 10^6/ul Hgb 14.5 (14.0-18.0) g/dl Hct 44 (42-52) % MCV 99 H (80-94) fL MCH 32 H (27-31) pg MCHC 33 (31-36) g/dl RDW 14 (10.5-15) % Plt Count 209 (150-450) 10^3/ul MPV 8 (7.4-10.4) um3 Neut % (Auto) 50.4 (38-83) % Lymph % (Auto) 34.4 (25-47) % Person % (Auto) 10.0 H (1-9) % Eos % (Auto) 4.4 (0-6) % Baso % (Auto) 0.8 (0-2) % Absolute Neuts (auto) 3.3 (1.5-7.7) 10^3/ul Absolute Lymphs (auto) 2.2 (1.0-4.8) 10^3/ul Absolute Monos (auto) 0.6 (0-0.8) 10^3/ul Absolute Eos (auto) 0.3 (0-0.6) 10^3/ul Absolute Basos (auto) 0.1 (0-0.2) 10^3/ul Absolute Nucleated RBC 0.01 10^3/ul Nucleated RBC % 0.2 APTT 28.3 (26.0-36.3) seconds D-Dimer, Quantitative 261 H (Less Than 230) ng/mL Sodium 137 (133-145) mmol/L Potassium 4.1 (3.5-5.0) mmol/L Chloride 104 (101-111) mmol/L Carbon Dioxide 23 (22-32) mmol/L Anion Gap 10 (2-11) mmol/L BUN 15 (6-24) mg/dL Creatinine 1.17 (0.67-1.17) mg/dL Est GFR ( Amer) 81.8 (>60) Est GFR (Non-Af Amer) 63.6 (>60) BUN/Creatinine Ratio 12.8 (8-20) Glucose 91 (70-100) mg/dL Lactic Acid (0.5-2.0) mmol/L Calcium 9.5 (8.6-10.3) mg/dL Magnesium 2.2 (1.9-2.7) mg/dL Total Bilirubin 1.20 H (0.2-1.0) mg/dL AST 41 H (13-39) U/L ALT 65 H (7-52) U/L Alkaline Phosphatase 29 L (34-104) U/L Total Creatine Kinase 97 (10-223) U/L Troponin I 0.00 (<0.04) ng/mL C-Reactive Protein 3.74 (< 5.00) mg/L B-Natriuretic Peptide ( - 100) pg/mL Total Protein 6.9 (6.4-8.9) g/dL Albumin 4.3 (3.2-5.2) g/dL Globulin 2.6 (2-4) g/dL Albumin/Globulin Ratio 1.7 (1-3) Lipase 15 (11.0-82.0) U/L 08/10/16 08/10/16 Range/Units 13:05 13:05 WBC (3.5-10.8) 10^3/ul RBC (4.0-5.4) 10^6/ul Hgb (14.0-18.0) g/dl Hct (42-52) % MCV (80-94) fL MCH (27-31) pg MCHC (31-36) g/dl RDW (10.5-15) % Plt Count (150-450) 10^3/ul MPV (7.4-10.4) um3 Neut % (Auto) (38-83) % Lymph % (Auto) (25-47) % Person % (Auto) (1-9) % Eos % (Auto) (0-6) % Baso % (Auto) (0-2) % Absolute Neuts (auto) (1.5-7.7) 10^3/ul Absolute Lymphs (auto) (1.0-4.8) 10^3/ul Absolute Monos (auto) (0-0.8) 10^3/ul Absolute Eos (auto) (0-0.6) 10^3/ul Absolute Basos (auto) (0-0.2) 10^3/ul Absolute Nucleated RBC 10^3/ul Nucleated RBC % APTT (26.0-36.3) seconds D-Dimer, Quantitative (Less Than 230) ng/mL Sodium (133-145) mmol/L Potassium (3.5-5.0) mmol/L Chloride (101-111) mmol/L Carbon Dioxide (22-32) mmol/L Anion Gap (2-11) mmol/L BUN (6-24) mg/dL Creatinine (0.67-1.17) mg/dL Est GFR ( Amer) (>60) Est GFR (Non-Af Amer) (>60) BUN/Creatinine Ratio (8-20) Glucose (70-100) mg/dL Lactic Acid 1.2 (0.5-2.0) mmol/L Calcium (8.6-10.3) mg/dL Magnesium (1.9-2.7) mg/dL Total Bilirubin (0.2-1.0) mg/dL AST (13-39) U/L ALT (7-52) U/L Alkaline Phosphatase (34-104) U/L Total Creatine Kinase (10-223) U/L Troponin I (<0.04) ng/mL C-Reactive Protein (< 5.00) mg/L B-Natriuretic Peptide 371 H ( - 100) pg/mL Total Protein (6.4-8.9) g/dL Albumin (3.2-5.2) g/dL Globulin (2-4) g/dL Albumin/Globulin Ratio (1-3) Lipase (11.0-82.0) U/L Assess/Plan/Problems-Billing Assessment: Mr. Dial is a 60 yo male with a PMH of prostate cancer, borderline HTN, and herpes zoster, who presented to the ED on 08/10 with concern for dyspnea with exertion; in the ED, patient was found to be in afib with RVR. - Patient Problems (1) Atrial fibrillation with rapid ventricular response Code(s): I48.91 - UNSPECIFIED ATRIAL FIBRILLATION Comment: S/p cardioversion 08/12, now in sinus rhythm Continue Xarelto, metoprolol, and amiodarone. Patient's skin is not consistent with medication rash, and he does not endorse any pruritis, blistering, or pain. Skin is blanchable and consistent with sun exposure. Patient advised not to drink alcohol. (2) Dyspnea on exertion Code(s): R06.09 - OTHER FORMS OF DYSPNEA Comment: Patient with cardiomyopathy CHARLES shows EF 25%, global hypokinesis, mild to mod MR and TR Continue metoprolol, lisinopril. Outpatient cardiology follow-up, ischemic workup as outpatient. Patient will benefit from outpatient sleep study. CTA negative for PE (3) HTN (hypertension) Code(s): I10 - ESSENTIAL (PRIMARY) HYPERTENSION Comment: Not previously on medication Normotensive Continue Toprol XL and LISETH-I (4) Prostate cancer Code(s): C61 - MALIGNANT NEOPLASM OF PROSTATE Comment: Continue outpatient f/u. (5) DVT prophylaxis Code(s): GUF9309 - Comment: Xarelto Status and Disposition: Inpatient. D/c to home.
[2016-08-12] MEDS: Amiodarone TAB* 200 MG PO SCH ×2 (10:13→21:53)
[2016-08-12] MEDS ORDERED: NS 0.9% 1000 ML* 1,000 ML IV SCH (12:00)
[2016-08-12] MEDS: Rivaroxaban TAB(*) 20 MG TAB PO SCH (18:19)
[2016-08-12] MEDS: Lisinopril TAB* 5 MG PO SCH (21:53)
[2016-08-13 06:24] LABS: BUN/Creatinine Ratio 14.6 (8-20); Calcium 8.4 mg/dL (8.6-10.3); EGFR African American 72.4 (>60); EGFR Non-African American 56.3 (>60); Potassium 4.2 mmol/L (3.5-5.0)
[2016-08-13] MEDS: Amiodarone TAB* 200 MG PO SCH (08:58)
[2016-08-13] MEDS ORDERED: Metoprolol Succinate XL TAB* 50 MG PO SCH (09:00)
--- NOTE | 2016-08-13 09:44 | PN ---
Subjective Date of Service: 08/13/16 Interval History: Patient seen and examined at bedside. Mr. Dial has no complaints and is eager to go home. 35 minutes spent in focused education regarding medication use, alcohol cessation, diet and exercise. No other acute concerns. Family History: Unchanged from Admission Social History: Unchanged from Admission Past Medical History: Unchanged from Admission Objective Active Medications: Acetaminophen (Tylenol Tab*) 650 mg PO Q4H PRN PRN Reason: FEVER/PAIN Amiodarone HCl (Cordarone Tab*) 200 mg PO BID [facility] Last Admin: 08/13/16 08:58 Dose: 200 mg Lisinopril (Prinivil Tab*) 5 mg PO BEDTIME [facility] Last Admin: 08/12/16 21:53 Dose: 5 mg Metoprolol Succinate (Toprol Xl Tab*) 50 mg PO DAILY [facility] Last Admin: 08/13/16 08:58 Dose: 50 mg Metoprolol Tartrate (Lopressor Iv*) 5 mg IV Q6H PRN PRN Reason: TACHYCARDIA Ondansetron HCl (Zofran Inj*) 4 mg IV Q4H PRN PRN Reason: NAUSEA/VOMITING Rivaroxaban (Xarelto (*)) 20 mg PO DAILY@1700 [facility] Last Admin: 08/12/16 18:19 Dose: 20 mg Vital Signs 08/12/16 08/12/16 08/12/16 12:03 15:04 19:15 Temperature 98.3 F 97.5 F 97.6 F Pulse Rate 62 60 63 Respiratory 16 16 18 Rate Blood Pressure 119/81 104/71 111/76 (mmHg) O2 Sat by Pulse 98 99 100 Oximetry 08/12/16 08/13/16 08/13/16 20:00 00:10 03:25 Temperature 98.0 F 98.1 F Pulse Rate 63 60 Respiratory 18 20 20 Rate Blood Pressure 108/80 112/75 (mmHg) O2 Sat by Pulse 95 94 Oximetry 08/13/16 07:48 Temperature Pulse Rate Respiratory 20 Rate Blood Pressure (mmHg) O2 Sat by Pulse Oximetry Oxygen Devices in Use Now: None Appearance: Male patient, lying in bed, NAD Eyes: PERRLA Ears/Nose/Mouth/Throat: Mucous Membranes Moist Neck: NL Appearance and Movements; NL JVP Respiratory: Symmetrical Chest Expansion and Respiratory Effort, Clear to Auscultation Cardiovascular: NL Sounds; No Murmurs; No JVD, RRR Abdominal: NL Sounds; No Tenderness; No Distention Extremities: No Edema Neurological: Alert and Oriented x 3 Lines/Tubes/Other Access: Clean, Dry and Intact Peripheral IV Nutrition: Taking PO's Result Diagrams: 08/10/16 13:05 08/13/16 05:31 Additional Lab and Data: Lab Results 08/10/16 08/10/16 08/10/16 Range/Units 13:05 13:05 13:05 WBC 6.5 (3.5-10.8) 10^3/ul RBC 4.46 (4.0-5.4) 10^6/ul Hgb 14.5 (14.0-18.0) g/dl Hct 44 (42-52) % MCV 99 H (80-94) fL MCH 32 H (27-31) pg MCHC 33 (31-36) g/dl RDW 14 (10.5-15) % Plt Count 209 (150-450) 10^3/ul MPV 8 (7.4-10.4) um3 Neut % (Auto) 50.4 (38-83) % Lymph % (Auto) 34.4 (25-47) % [place] % (Auto) 10.0 H (1-9) % Eos % (Auto) 4.4 (0-6) % Baso % (Auto) 0.8 (0-2) % Absolute Neuts (auto) 3.3 (1.5-7.7) 10^3/ul Absolute Lymphs (auto) 2.2 (1.0-4.8) 10^3/ul Absolute Monos (auto) 0.6 (0-0.8) 10^3/ul Absolute Eos (auto) 0.3 (0-0.6) 10^3/ul Absolute Basos (auto) 0.1 (0-0.2) 10^3/ul Absolute Nucleated RBC 0.01 10^3/ul Nucleated RBC % 0.2 APTT 28.3 (26.0-36.3) seconds D-Dimer, Quantitative 261 H (Less Than 230) ng/mL Sodium 137 (133-145) mmol/L Potassium 4.1 (3.5-5.0) mmol/L Chloride 104 (101-111) mmol/L Carbon Dioxide 23 (22-32) mmol/L Anion Gap 10 (2-11) mmol/L BUN 15 (6-24) mg/dL Creatinine 1.17 (0.67-1.17) mg/dL Est GFR ( Amer) 81.8 (>60) Est GFR (Non-Af Amer) 63.6 (>60) BUN/Creatinine Ratio 12.8 (8-20) Glucose 91 (70-100) mg/dL Lactic Acid (0.5-2.0) mmol/L Calcium 9.5 (8.6-10.3) mg/dL Magnesium 2.2 (1.9-2.7) mg/dL Total Bilirubin 1.20 H (0.2-1.0) mg/dL AST 41 H (13-39) U/L ALT 65 H (7-52) U/L Alkaline Phosphatase 29 L (34-104) U/L Total Creatine Kinase 97 (10-223) U/L Troponin I 0.00 (<0.04) ng/mL C-Reactive Protein 3.74 (< 5.00) mg/L B-Natriuretic Peptide ( - 100) pg/mL Total Protein 6.9 (6.4-8.9) g/dL Albumin 4.3 (3.2-5.2) g/dL Globulin 2.6 (2-4) g/dL Albumin/Globulin Ratio 1.7 (1-3) Lipase 15 (11.0-82.0) U/L 08/10/16 08/10/16 Range/Units 13:05 13:05 WBC (3.5-10.8) 10^3/ul RBC (4.0-5.4) 10^6/ul Hgb (14.0-18.0) g/dl Hct (42-52) % MCV (80-94) fL MCH (27-31) pg MCHC (31-36) g/dl RDW (10.5-15) % Plt Count (150-450) 10^3/ul MPV (7.4-10.4) um3 Neut % (Auto) (38-83) % Lymph % (Auto) (25-47) % [place] % (Auto) (1-9) % Eos % (Auto) (0-6) % Baso % (Auto) (0-2) % Absolute Neuts (auto) (1.5-7.7) 10^3/ul Absolute Lymphs (auto) (1.0-4.8) 10^3/ul Absolute Monos (auto) (0-0.8) 10^3/ul Absolute Eos (auto) (0-0.6) 10^3/ul Absolute Basos (auto) (0-0.2) 10^3/ul Absolute Nucleated RBC 10^3/ul Nucleated RBC % APTT (26.0-36.3) seconds D-Dimer, Quantitative (Less Than 230) ng/mL Sodium (133-145) mmol/L Potassium (3.5-5.0) mmol/L Chloride (101-111) mmol/L Carbon Dioxide (22-32) mmol/L Anion Gap (2-11) mmol/L BUN (6-24) mg/dL Creatinine (0.67-1.17) mg/dL Est GFR ( Amer) (>60) Est GFR (Non-Af Amer) (>60) BUN/Creatinine Ratio (8-20) Glucose (70-100) mg/dL Lactic Acid 1.2 (0.5-2.0) mmol/L Calcium (8.6-10.3) mg/dL Magnesium (1.9-2.7) mg/dL Total Bilirubin (0.2-1.0) mg/dL AST (13-39) U/L ALT (7-52) U/L Alkaline Phosphatase (34-104) U/L Total Creatine Kinase (10-223) U/L Troponin I (<0.04) ng/mL C-Reactive Protein (< 5.00) mg/L B-Natriuretic Peptide 371 H ( - 100) pg/mL Total Protein (6.4-8.9) g/dL Albumin (3.2-5.2) g/dL Globulin (2-4) g/dL Albumin/Globulin Ratio (1-3) Lipase (11.0-82.0) U/L Assess/Plan/Problems-Billing Assessment: Mr. iDal is a 60 yo male with a PMH of prostate cancer, borderline HTN, and herpes zoster, who presented to the ED on 08/10 with concern for dyspnea with exertion; in the ED, patient was found to be in afib with RVR. - Patient Problems (1) Atrial fibrillation with rapid ventricular response Code(s): I48.91 - UNSPECIFIED ATRIAL FIBRILLATION Comment: S/p cardioversion 08/12, now in sinus rhythm Few PVCs on monitor, no afib noted on telemetry. Continue Xarelto, metoprolol, and amiodarone. Per Dr. Acevedo's note, continue amiodarone BID x 2 weeks. Outpatient f/u with Dr. Slater. Patient advised not to drink alcohol. (2) Dyspnea on exertion Code(s): R06.09 - OTHER FORMS OF DYSPNEA Comment: Patient with cardiomyopathy CHARLES shows EF 25%, global hypokinesis, mild to mod MR and TR Continue metoprolol, lisinopril. Outpatient cardiology follow-up, ischemic workup as outpatient. Patient will benefit from outpatient sleep study. CTA negative for PE (3) Acute kidney injury Code(s): N17.9 - ACUTE KIDNEY FAILURE, UNSPECIFIED Comment: Suspect secondary to starting lisinopril. Reduce dose to 2.5 mg Repeat BMP next week, follow-up with PCP. (4) HTN (hypertension) Code(s): I10 - ESSENTIAL (PRIMARY) HYPERTENSION Comment: Not previously on medication Normotensive Continue Toprol XL and LISETH-I (5) Prostate cancer Code(s): C61 - MALIGNANT NEOPLASM OF PROSTATE Comment: Continue outpatient f/u. (6) DVT prophylaxis Code(s): JRI1902 - Comment: Xarelto Status and Disposition: Inpatient. D/c to home.
[2016-08-13 10:08] VITALS: BP 118/82
[2016-08-13] MEDS ORDERED: Lisinopril TAB* 5 MG PO SCH (21:00)
--- NOTE | 2016-08-14 22:56 | DS ---
MEDICINE DISCHARGE SUMMARY: DATE OF ADMISSION: 08/10/16 DATE OF DISCHARGE: 08/13/16 PROVIDER: Lauro Nuno NP ATTENDING PHYSICIAN: Dr. Jasmin Ellis* (as dictated by Lauro Nuno NP). CONSULTING PHYSICIAN: Dr. Jose Manuel Slater, Cardiology. PRIMARY CARE PHYSICIAN: Dr. Bonilla Nugent. PRIMARY DISCHARGE DIAGNOSES: 1. Atrial fibrillation with rapid ventricular response. 2. Cardiomyopathy, estimated ejection fraction 25%. 3. Acute kidney injury. SECONDARY DISCHARGE DIAGNOSES: 1. Prostate cancer. 2. Herpes zoster. 3. Borderline hypertension, previously untreated. 4. History of skin cancer including squamous cell carcinoma removed from head and chest wall as well as a basal cell carcinoma. HOSPITAL COURSE OF STAY: For full details, please refer to the H and P provided by Dr. Vogt on 08/10/16. In summary, Mr. Dial is a 60-year-old gentleman, who reports a month long complaint of dyspnea with exertion. He first noted it back as far as June 03 that became progressively worse until he presented to the hospital on August 10. The day prior to admission, the patient did also note some lower chest discomfort associated with pain under his left scapula. In the emergency room, he was found in atrial fibrillation with rates up to 150 beats per minute. Mr. Dial was admitted for further evaluation and treatment. In the ER, he did receive 20 mg of IV diltiazem with good control. He was switched to IV metoprolol and p.o. metoprolol and a Cardiology consult was requested. There was a plan for a CHARLES cardioversion the following day. In regards to his dyspnea with exertion, it was felt this may be related to the AFib, but the patient endorses such a long history that a CHARLES was scheduled with a plan for potential cardioversion. The patient did undergo transesophageal echocardiogram on 08/10/16. Conclusions were as follows: There is severely decreased left ventricular systolic function, global hypokinesis. The estimated ejection fraction is 20% to 25%. The right ventricular global systolic function is moderately reduced globally. The left atrium is mildly to moderately dilated. The right atrium is mildly to moderately dilated. The aortic valve was trileaflet, normal structure and function. There is fucw-ib-wrecglkt mitral regurgitation. There is dkaf-in-swniuvce tricuspid regurgitation. No pulmonary hypertension is noted , maybe underestimated. No prior echo to compare. The patient underwent a successful cardioversion and converted into normal sinus rhythm. He was transported back to the telemetry unit in stable condition. When the patient recovered from sedation, we did have a lengthy discussion regarding his diagnosis of atrial fibrillation with new cardiomyopathy. We did discuss his Xarelto, which he had started on upon admission. We did again discuss the increased stroke risk from atrial fibrillation and the use of Xarelto as a stroke prophylactic measure. The patient has been asymptomatic during his AFib. We also discussed the medications he is on including his metoprolol and the Zestril that was also started. These were discussed at length with both the patient and his . We also discussed starting his amiodarone as an antiarrhythmic. The patient does endorse a history of social alcohol drinking. The amount of this has varied, but it does appear that the patient drinks at a fairly regular basis. Also, of note, the patient presented to the ER and he had notable macrocytosis with an MCV of 99. His LFTs were also elevated, but did improve during the course of his stay. The chronicity of this is unknown given that we do not have any previous labs for comparison. However, I do suspect that the patient does have a fairly consistent alcohol use. Multiple times we discussed the fact that alcohol increases his risk for further liver disease as well as aggravate atrial fibrillation and can induce cardiomyopathy. We also explained that amiodarone and alcohol will not be of great combination as this may lead to further liver toxicity as well as other adverse events and risk of further disability. He did verbalize understanding of this and states that he thinks the best thing he would do will be to quit alcohol at this time. The patient remained in sinus rhythm, although he did have a couple of bursts of atrial fibrillation overnight following his cardioversion in the morning. He was seen in consultation by Dr. Acevedo, who thought the patient should stay for an additional night. Additionally, the patient did show a mild bump in his creatinine after starting the Zestril. He received a liter of fluid and this was checked the following day and remained stable at 1.3. We did decrease his lisinopril and advised the patient to follow up with another BMP next week. In regards to other cardiac risk factors, we discussed the possibility of sleep apnea. He does think that he does snore. He will likely need an outpatient sleep study. We did do an overnight pulse oximetry. The patient showed a desaturation event index of 24.8, which indicates the events that were greater than or equal to 10 seconds per sampled hour. The patient had 16 desaturation events of 3 minutes' duration. There were 174 desaturation events of less than 3 minutes' duration during which the mean high was 95 and the mean low was 90%. Again, much time was spent in teaching this patient. He was advised to adhere to a strict medication regimen as well as avoiding alcohol and maintaining a heart- healthy diet. The patient was encouraged to continue with exercise, but to recognize when he needs rest. The patient was advised to continue on 200 mg b.i.d. for [address] Acevedo, at which point he can go down to once daily dosing. He should continue his Xarelto, metoprolol, and lisinopril as prescribed and should follow up with a BMP next week and see his PCP. He has a scheduled appointment for followup with Dr. Slater in approximately 4 weeks. He will pursue a followup echo and ischemic workup with Dr. Slater as an outpatient. CONCERNS AT DISCHARGE: Mr. Dial discharged home on 08/13/16. OUTPATIENT FOLLOWUP NEEDS: The patient will have a BMP drawn on 08/17/16. He should also have outpatient ischemic workup with Cardiology and may benefit from an additionally sleep study that may be more conclusive. DIET: Heart-healthy diet. The patient has been advised to stop drinking alcohol. ACTIVITY: As tolerated. CONDITION: Stable. DISPOSITION: To home. TIME SPENT: Time spent on this discharge was approximately 50 minutes. Again, this is only a brief summary of the patient's hospital course of stay. For full details, please refer to the full medical record. If you have any further questions or need further assistance, please feel free to contact me at [phone]. LAURO NUNO NP CC: Dr. Nugent* [id number]/CPS #: [id number] MTDD
== END 2016-08-13 11:55 | disposition home or self-care (01) | DRG 201 ==
LOC: ED 11:48 → MEDTELE 14:56
PROVIDERS: ADMIT Internal Medicine; ATTEND Internal Medicine
PROC: 5A2204Z Restoration of Cardiac Rhythm, Single (ICD-10-PCS; principal; 2016-08-11 09:30)
DX: I48.0 Paroxysmal atrial fibrillation (principal); N17.9 Acute kidney failure, unspecified; I42.9 Cardiomyopathy, unspecified; I27.2 Other secondary pulmonary hypertension; I08.1 Rheumatic disorders of both mitral and tricuspid valves; I10 Essential (primary) hypertension; D75.89 Other specified diseases of blood and blood-forming organs; C61 Malignant neoplasm of prostate; R94.5 Abnormal results of liver function studies; I49.3 Ventricular premature depolarization; Z72.89 Other problems related to lifestyle; Z82.49 Family history of ischemic heart disease and other diseases of the circulatory system; Z85.828 Personal history of other malignant neoplasm of skin; Z87.891 Personal history of nicotine dependence
CPT/HCPCS: 36415; 71010; 71275; 80048; 80053; 81003; 82550; 83605; 83690; 83735; 83880; 84460; 84484; 85025; 85379; 85730; 86140; 92960; 93005; 93312; 93325; 94762; A9270-GY; J2250; J2310; J3010; Q9967

== ENCOUNTER 2017-03-21 11:56 | Emergency (ER) | payer BC ==
[2017-03-21 12:03] VITALS: BP 159/79
--- NOTE | 2017-03-21 13:25 | RAD ---
Indication: Fell and hit head skiing. On Xarelto. Comparison: No relevant prior exams available on the [facility] for comparison. Technique: Noncontrast CT vertex of skull through foramen magnum. Report: The sulci, ventricles, and basal cisterns are normal for age. Mcdonough matter white matter differentiation is preserved without evidence for edema. No intra or extra axial hemorrhage, mass, or fluid collection detected. Unremarkable visualized orbital contents. Unremarkable calvarium and skull base. Negative for scalp hematoma. Partially visualized RIGHT maxillary sinus is remarkable for a fluid level. The remaining visualized paranasal sinuses and mastoid air spaces are clear. IMPRESSION: 1. No evidence for intracranial hemorrhage or other stigmata of traumatic brain injury. 2. Fluid level at the partially visualized RIGHT maxillary sinus. Correlate for potential sinusitis.
--- NOTE | 2017-03-21 19:03 | ED ---
Head Injury - HPI Summary HPI Summary: Patient presents to the ED after hitting the back of his head while downhill skiing this afternoon. He is currently on xarelto for afib and recently had ablation. Tow Picker is Dr. Slater. He denies CACERES, neuro symptoms including memory loss, confusion, visual changes. Denies any and all other symptoms. He states he is very active and has not had any feelings of illness including fevers. Denies LOC. +wearing helmet. - History Of Current Complaint Chief Complaint: EDHeadInjury Stated Complaint: FALL /HEAD INJURY Time Seen by Provider: 03/21/17 12:08 Hx Obtained From: Patient Mechanism Of Injury: Blunt Trauma Onset/Duration: Started Hours Ago Onset of Pain: Immediate Severity Currently: Moderate Severity Initially: Moderate Pain Intensity: 2 Pain Scale Used: 0-10 Numeric Location of Head Injury: Occipital Character: Dull, Pressure Aggravating Factor(s): Movement Alleviating Factor(s): Rest, Ice Anticoagulant Therapy: Blood Thinners - Risk Factors SDH Risk Factor: Male - Allergies/Home Medications Allergies/Adverse Reactions: Allergies Allergy/AdvReac Type Severity Reaction Status Date / Time No Known Allergies Allergy Verified 10/09/14 19:55 PMH/Surg Hx/FS Hx/Imm Hx Previously Healthy: Yes Endocrine/Hematology History: Denies: Hx Diabetes, Hx Thyroid Disease Cardiovascular History: Denies: Hx Hypertension Respiratory History: Denies: Hx Asthma, Hx Chronic Obstructive Pulmonary Disease (COPD) GI History: Denies: Hx Ulcer History: Reports: Other Problems/Disorders - Prostate cancer Sensory History: Reports: Hx Contacts or Glasses Denies: Hx Hearing Aid Opthamlomology History: Reports: Hx Contacts or Glasses - Cancer History Cancer Type, Location and Year: PT HAS STAGE 1 prostate ca - no treatment yet, active observation 07/31 - Surgical History Surgery Procedure, Year, and Place: 2 hernia surgeries. meniscus surgeries - Immunization History Hx Pertussis Vaccination: No Immunizations Up to Date: Unable to Obtain/Confirm Infectious Disease History: No Infectious Disease History: Denies: Hx Hepatitis, Hx Human Immunodeficiency Virus (HIV), History Other Infectious Disease, Traveled Outside the [place] in Last 30 Days - Family History Known Family History: Positive: Cardiac Disease - Social History Occupation: Employed Full-time Lives: With Family Alcohol Use: None Alcohol Amount: 4-6 cans of beer per day during week. 10-12 per day on weekend Hx Substance Use: No Substance Use Type: Reports: None Hx Tobacco Use: No Smoking Status (MU): Never Smoked Tobacco Review of Systems Constitutional: Negative Negative: Fever, Chills, Fatigue, Skin Diaphoresis Eyes: Negative ENT: Negative Cardiovascular: Negative Respiratory: Negative Positive: no symptoms reported, see HPI Musculoskeletal: Negative Neurological: Negative Psychological: Normal All Other Systems Reviewed And Are Negative: Yes Physical Exam Triage Information Reviewed: Yes Vital Signs On Initial Exam: Initial Vitals Temp Pulse Resp BP Pulse Ox 97.7 F 75 18 159/79 96 03/21/17 12:00 03/21/17 12:00 03/21/17 12:00 03/21/17 12:00 03/21/17 12:00 Vital Signs Reviewed: Yes Appearance: Positive: Well-Appearing, Well-Nourished Skin: Positive: Warm, Skin Color Reflects Adequate Perfusion Head/Face: Positive: Normal Head/Face Inspection Eyes: Positive: EOMI, GARFIELD, Conjunctiva Clear Neck: Positive: Supple, No Lymphadenopathy Respiratory/Lung Sounds: Positive: Clear to Auscultation, Breath Sounds Present Cardiovascular: Positive: Normal, RRR, Pulses are Symmetrical in both Upper and Lower Extremities Musculoskeletal: Positive: Strength/ROM Intact Neurological: Positive: Sensory/Motor Intact, Alert, Oriented to Person Place, Time, Speech Normal Psychiatric: Positive: Normal, Affect/Mood Appropriate AVPU Assessment: Alert - Paco Coma Scale Coma Scale Total: 15 Diagnostics - Vital Signs Vital Signs Temp Pulse Resp BP Pulse Ox 03/21/17 12:00 97.7 F 75 18 159/79 96 - Laboratory Lab Statement: Any lab studies that have been ordered have been reviewed, and results considered in the medical decision making process. Head Injury Course/Dx Course Of Treatment: GCS score >15 at 2h post injury. No suspected open or depressed skull fx, no sign of basal skull fx, no hemotympanum, raccoon eyes, Battles sign, CSF kerline-/rhinorrhea, no emesis after injury, age no amnesia greater than 30 minutes prior to trauma, and mechanism of injury was minimal impact with no MVA or fall greater than 3 ft. Complete neuro exam completed and WNL. Normal head/face inspection with no cephalohematoma. Reflexes intact. EOMI, GARFIELD, visual acuity intact. No obvious confusion or memory loss per patient. MMSE OK. GCS 15. Patient oriented to person, place and date. No obvious deformity or signs of trauma. Ct brain negative for any findings. IMPRESSION: 1. No evidence for intracranial hemorrhage or other stigmata of traumatic brain injury. 2. Fluid level at the partially visualized RIGHT maxillary sinus. Correlate for potential. sinusitis. Patient is made aware of results and stated he had some right sided maxillary feelings of "fullness" a few days ago and denies currently. Would not like to placed on abx at this time. Treatment options explained to patient. Patient understands the plan, voices no concerns at this time and understands the return precatuions given to them if they develop any worsening or changing symptoms. They are OK for discharge at this time. VS stable on discharge. Primary care follow up as agreed on discharge. - Diagnoses Provider Diagnoses: Head injury Discharge - Discharge Plan Condition: Stable Disposition: HOME Patient Education Materials: Rivaroxaban (By mouth), Head Injury (ED) Referrals: Bonilla Nugent MD [Primary Care Provider] - Additional Instructions: Please follow up with Dr. Nugent as needed No evidence of bleed in the brain If you develop any symptoms such as CACERES
== END 2017-03-21 13:39 | disposition home or self-care (01) ==
LOC: ED 11:56
DX: S09.90XA Unspecified injury of head, initial encounter (principal); W00.0XXA Fall on same level due to ice and snow, initial encounter; Y93.23 Activity, snow (alpine) (downhill) skiing, snowboarding, sledding, tobogganing and snow tubing; I48.91 Unspecified atrial fibrillation; Z79.01 Long term (current) use of anticoagulants
CPT/HCPCS: 70450; 99282

== ENCOUNTER 2018-08-15 12:15 | Observation (INO) | payer BC ==
[2018-08-15 13:07] LABS: ABS Basophils 0.1 10^3/ul (0-0.2); ABS Eosinophils 0.1 10^3/ul (0-0.6); ABS Lymphocytes 1.8 10^3/ul (1.0-4.8); ABS Monocytes 0.6 10^3/ul (0-0.8); ABS Neutrophils 4.7 10^3/ul (1.5-7.7); Hematocrit 44 % (42-52); Hemoglobin 14.9 g/dL (14.0-18.0); Lymphocyte % 25.2 %; Mean Corpuscular HGB Conc 34 g/dL (31-36); Mean Corpuscular Hemoglobin 34 pg (27-31); Mean Corpuscular Volume 100 fL (80-94); Mean Platelet Volume 7.4 fL (7.4-10.4); Nucleated Red Blood Cells % 0.1; Platelet Count 280 10^3/uL (150-450); Red Blood Count 4.43 10^6 /uL (4.18-5.48); Red Cell Distribution Width 14 % (10.5-15); White Blood Count 7.3 10^3/uL (3.5-10.8)
[2018-08-15] MEDS ORDERED: Diltiazem IV push/loading dose 5 MG/ML 5 ML vial (25 mg) IV SLOW PU ONE (13:12)
--- NOTE | 2018-08-15 13:16 | ED ---
Palpitations / Dysrhythmia - HPI Summary HPI Summary: Pt is a 62 y/o M presenting to the ED with a chief complaint of heart palpitations onset this morning upon waking up. He tried to take his blood pressure which kept reporting error, and had a difficult time taking his pulse. He reports palpitations and lightheadedness. He has hx of AFib but has not had an episode in years, and takes Lisinopril for HTN. He denies hx of DM, smoking, or using recreational drugs. FHx includes AFib and HTN. - History of Current Complaint Chief Complaint: EDDysrhythmPalp Time Seen by Provider: 08/15/18 13:00 Hx Obtained From: Patient Onset/Duration: Sudden Onset, Lasting Hours, Still Present Timing: Constant Severity Initially: Mild Severity Currently: Mild Character: Fast, Irregular Aggravating: Nothing Alleviating: Nothing Associated Signs & Symptoms: Lightheadedness - Allergy/Home Medications Allergies/Adverse Reactions: Allergies Allergy/AdvReac Type Severity Reaction Status Date / Time No Known Allergies Allergy Verified 08/15/18 12:27 Home Medications: Home Medications Lisinopril [Lisinopril 2.5 MG-] 2.5 mg PO DAILY 08/15/18 [History Confirmed ] PMH/Surg Hx/FS Hx/Imm Hx Previously Healthy: Yes Endocrine/Hematology History: Denies: Hx Diabetes, Hx Thyroid Disease Cardiovascular History: Reports: Hx Hypertension Respiratory History: Denies: Hx Asthma, Hx Chronic Obstructive Pulmonary Disease (COPD) GI History: Denies: Hx Ulcer History: Reports: Other Problems/Disorders - Prostate cancer Sensory History: Reports: Hx Contacts or Glasses Opthamlomology History: Reports: Hx Contacts or Glasses - Cancer History Cancer Type, Location and Year: PT HAS STAGE 1 prostate ca - no treatment yet, active observation 07/31 - Surgical History Surgery Procedure, Year, and Place: 2 hernia surgeries. meniscus surgeries Infectious Disease History: No Infectious Disease History: Denies: Hx Hepatitis, Hx Human Immunodeficiency Virus (HIV), History Other Infectious Disease, Traveled Outside the [place] in Last 30 Days - Family History Known Family History: Positive: Cardiac Disease - Afib, Hypertension - Social History Alcohol Use: Occasionally Hx Substance Use: No Substance Use Type: Reports: None Hx Tobacco Use: No Smoking Status (MU): Never Smoked Tobacco Review of Systems Positive: Palpitations Neurological: Other - lightheadedness All Other Systems Reviewed And Are Negative: Yes Physical Exam - Summary Physical Exam Summary: Appearance: Well appearing, no pain distress Skin: warm, dry, reflects adequate perfusion Head/face: normal Eyes: EOMI, [place] ENT: normal Neck: supple, non-tender Respiratory: CTA, breath sounds present Cardiovascular: Tachycardic, rhythm irregularly irregular, pulses symmetrical Abdomen: non-tender, soft Musculoskeletal: normal, strength/ROM intact Neuro: normal, sensory motor intact, A&Ox3 Triage Information Reviewed: Yes Vital Signs On Initial Exam: Initial Vitals Temp Pulse Resp BP Pulse Ox 97.4 F 122 18 142/118 98 08/15/18 12:22 08/15/18 12:22 08/15/18 12:22 08/15/18 12:22 08/15/18 12:22 Vital Signs Reviewed: Yes Diagnostics - Vital Signs Vital Signs Temp Pulse Resp BP Pulse Ox 08/15/18 12:22 97.4 F 122 18 142/118 98 - Laboratory Lab Results: Lab Results 08/15/18 Range/Units 12:56 WBC 7.3 (3.5-10.8) 10^3/uL RBC 4.43 (4.18-5.48) 10^6 /uL Hgb 14.9 (14.0-18.0) g/dL Hct 44 (42-52) % MCV 100 H (80-94) fL MCH 34 H (27-31) pg MCHC 34 (31-36) g/dL RDW 14 (10.5-15) % Plt Count 280 (150-450) 10^3/uL MPV 7.4 (7.4-10.4) fL Neut % (Auto) 64.5 % Lymph % (Auto) 25.2 % [place] % (Auto) 8.5 % Eos % (Auto) 1.0 % Baso % (Auto) 0.8 % Absolute Neuts (auto) 4.7 (1.5-7.7) 10^3/ul Absolute Lymphs (auto) 1.8 (1.0-4.8) 10^3/ul Absolute Monos (auto) 0.6 (0-0.8) 10^3/ul Absolute Eos (auto) 0.1 (0-0.6) 10^3/ul Absolute Basos (auto) 0.1 (0-0.2) 10^3/ul Absolute Nucleated RBC 0.0 10^3/ul Nucleated RBC % 0.1 Result Diagrams: 08/15/18 12:56 08/15/18 12:56 Lab Statement: Any lab studies that have been ordered have been reviewed, and results considered in the medical decision making process. - Radiology CXR Radiology Interpretation Completed By: Radiologist Summary of Radiographic Findings: No active cardiopulmonary disease. ED physician has reviewed this report. - EKG 1320 Cardiac Rate: Other Rate - 71bpm atrial fibrillation EKG Rhythm: Atrial Fibrillation ST Segment: Normal Ectopy: None Summary of EKG Findings: EKG at 1320 shows atrial fibrillation at 71bpm with no STEMI. Course/Dx - Course Course Of Treatment: Pt is a 62 y/o M presenting to the ED with a chief complaint of heart palpitations onset this morning upon waking up. He reports palpitations and lightheadedness. He has hx of AFib but has not had an episode in years, and takes Lisinopril for HTN. He denies hx of DM, smoking, or using recreational drugs. FHx includes AFib and HTN. CXR shows no active cardiopulmonary disease. EKG at 1320 shows atrial fibrillation at 71bpm with no STEMI. Pt will be admitted to [facility] with dx of AFib with RVR. He is stable and agreeable with this plan. - Diagnoses Differential Diagnosis/HQI/PQRI: Positive: Paroxymal SVT, Other - a fib with rvr Provider Diagnoses: Atrial fibrillation with rapid ventricular response Discharge - Sign-Out/Discharge Documenting (check all that apply): Patient Departure - Discharge Plan Condition: Stable Disposition: ADMITTED TO [facility] Referrals: Bonilla Nugent MD [Primary Care Provider] - - Billing Disposition and Condition Condition: STABLE Disposition: Admitted to [facility] - Attestation Statements Document Initiated by Scribe: Yes Documenting Scribe: Ginette Oconnor Provider For Whom Deacon is Documenting (Include Credential): Andrew Desai MD. Scribe Attestation: Ginette Enciso, scribed for Andrew Desai MD. on 08/15/18 at 1452. Scribe Documentation Reviewed: Yes Provider Attestation: The documentation as recorded by the scribe, Ginette Oconnor accurately reflects the service I personally performed and the decisions made by me, Andrew Desai MD. Status of Deacon Document: Viewed Consult Consult: [id number] - I spoke with Dr. Wynne who will be accepting the pt to [facility] with dx of AFib with RVR.
[2018-08-15 13:24] LABS: Albumin 4.5 g/dL (3.2-5.2); Albumin/Globulin Ratio 1.6 (1-3); BUN/Creatinine Ratio 15.8 (8-20); Calcium 9.7 mg/dL (8.6-10.3); EGFR African American 74.2 (>60); EGFR Non-African American 61.3 (>60); Globulin 2.8 g/dL (2-4); Potassium 4.3 mmol/L (3.5-5.0); Total Bilirubin 0.6 mg/dL (0.2-1.0); Total Protein 7.3 g/dL (6.4-8.9)
[2018-08-15 13:55] LABS: INR 0.97 (0.82-1.09)
[2018-08-15] MEDS ORDERED: Apixaban* 5 MG TAB PO ONE (14:36)
[2018-08-15 16:10] LABS: Magnesium 1.9 mg/dL (1.9-2.7)
[2018-08-15] MEDS: Diltiazem TAB* 30 MG PO SCH ×3 (16:10→23:51)
[2018-08-15 16:25] LABS: TSH (Thyroid Stimulating Horm) 1.89 mcIU/mL (0.34-5.60)
[2018-08-15 16:27] LABS: Free T4 0.74 ng/dL (0.61-1.12)
--- NOTE | 2018-08-15 19:31 | HP ---
History of Present Illness - History of Present Illness Reason for Visit: palpitations History of Present Illness: Patient is 62 year old man with history of one episode of a-fib, who developed palpitations, heart racing, earlier this morning. This was associated with lightheadedness, and a feeling of chest heaviness, but no chest pain, no dyspnea. He checked his pulse and it was irregular. He had a-fib once 2 years ago, and this felt the same way. In 08/04, he had a-fib, was cardioverted. 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 He then saw an radiator specialist at [facility], and had ablation. He was initially treated with amiodarone and Xarelto, but these were stopped 3-4 months after the ablation appeared successful. PCP: Dr. Nugent Rack Washer: Dr. Slater - Past Medical History Cardiac: AFIB - paroxysmal, HTN Infectious Disease: Herpes zoster Renal/: Other - prostate cancer, on active surveillance - Past Surgical History Past Surgical History: Hernia Repair - bilat, Other - basal and squamous cell cancer resections - Past Family History Family History: CAD - father, Hypertension - 2 brothers, Other - 1 brother with a-fib, mother of stroke/pneumonia age 92 - Past Social History Smoke: Quit - quit 25 years ago, smoked 2PPD Occupation: teacher of math at [employer] Alcohol: Heavy - 3-4 beers/day, more on Drugs: None Lives: With Family - , 2 children Domestic Violence: Negative Review of Systems - Measurements Intake and Output: Intake and Output Last 24 Hours 08/13/18 08/14/18 08/15/18 08/16/18 06:59 06:59 06:59 06:59 Intake Total 240 Balance 240 Weight 88.768 kg Intake: Oral 240 - Review of Systems Constitutional Symptoms: Negative: Weight Gain Dermatology: Positive: Normal HEENT: Positive: Normal Eyes: Positive: Normal Thyroid: Positive: Normal Pulmonary: Positive: Normal Cardiology: Positive: Palpitations, Faintness Negative: Swelling of Ankles, Peripheral Vascular Dis, Syncope, Proximal NocturnalDyspnea Gastroenterology: Positive: Normal Genital - Urinary: Positive: Normal Genitourinary - Male: Positive: Prostatism, Other Endocrinology: Positive: Normal Negative: Thyroid Problems Hematologic/Lymphatic: Negative: Anemia Neurology: Positive: Normal Psychiatry: Positive: Normal Objective Active Medications: Ambulatory Orders Fexofenadine (NF) [Josey 180 (NF)] 180 mg PO DAILY PRN 08/10/16 Metoprolol Succinate XL TAB* [Toprol XL TAB*] 50 mg PO DAILY #90 tab.xl Lisinopril [Lisinopril 2.5 MG-] 2.5 mg PO DAILY 08/15/18 Vital Signs - 8 hr 08/15/18 08/15/18 08/15/18 12:22 13:01 13:04 Temperature 36.3 C Pulse Rate 122 91 Respiratory 18 18 20 Rate Blood Pressure 142/118 114/87 (mmHg) O2 Sat by Pulse 98 96 Oximetry 08/15/18 08/15/18 08/15/18 13:21 13:34 14:00 Temperature Pulse Rate 88 74 71 Respiratory 12 21 19 Rate Blood Pressure 111/80 114/77 (mmHg) O2 Sat by Pulse 96 97 96 Oximetry 08/15/18 08/15/18 08/15/18 14:04 14:34 15:00 Temperature Pulse Rate 76 71 Respiratory 20 17 20 Rate Blood Pressure 109/78 121/73 (mmHg) O2 Sat by Pulse 95 93 Oximetry 08/15/18 08/15/18 08/15/18 15:04 15:34 16:00 Temperature Pulse Rate 59 86 98 Respiratory 17 21 21 Rate Blood Pressure 124/81 154/79 (mmHg) O2 Sat by Pulse 96 97 95 Oximetry 08/15/18 08/15/18 08/15/18 16:05 16:43 17:10 Temperature 36.8 C 36.7 C Pulse Rate 97 97 86 Respiratory 17 16 16 Rate Blood Pressure 120/67 122/82 128/73 (mmHg) O2 Sat by Pulse 96 98 97 Oximetry Oxygen Devices in Use Now: None Appearance: alert, no distress Eyes: No Scleral Icterus Ears/Nose/Mouth/Throat: Clear Oropharnyx Neck: NL Appearance and Movements; NL JVP Respiratory: Symmetrical Chest Expansion and Respiratory Effort, Clear to Auscultation, Clear to Percussion Cardiovascular: NL Sounds; No Murmurs; No JVD, No Edema, - - irregular, tachy Abdominal: NL Sounds; No Tenderness; No Distention, No Hepatosplenomegaly Lymphatic: No Cervical Adenopathy Extremities: No Edema Skin: No Rash or Ulcers Neurological: Alert and Oriented x 3, NL Muscle Strength and Tone Lines/Tubes/Other Access: Clean, Dry and Intact Peripheral IV Nutrition: Taking PO's Result Diagrams: 08/15/18 12:56 08/15/18 12:56 Additional Lab and Data: Laboratory Tests 08/15/18 08/15/18 08/15/18 12:56 12:56 13:36 INR (Anticoag Therapy) 0.97 Glucose 110 H Calcium 9.7 Magnesium 1.9 Troponin I 0.00 B-Natriuretic Peptide 420 H TSH 1.89 Free T4 0.74 08/15/18 15:28 INR (Anticoag Therapy) Glucose Calcium Magnesium Troponin I 0.01 B-Natriuretic Peptide TSH Free T4 Diagnostic Imaging: CXR: negative EKG Data: 1) A-fib with rapid ventricular response, V-rate 155 2) A-fib with V-rate 71, no ischemic ST or T-wave changes. Assess/Plan/Problems-Billing Assessment: 62 year old with paroxysmal atrial fibrillation, here with recurrence - Patient Problems (1) Atrial fibrillation with rapid ventricular response Current Visit: No Status: Acute Priority: High Code(s): I48.91 - UNSPECIFIED ATRIAL FIBRILLATION SNOMED Code(s): 905999708209981 Comment: -Patient will be admitted to telemetry, atrial fibrillation w/ RVR -Had good control of rate with IV diltiazem, oral diltiazem likely to work quickly -Discussed case with Dr. Acevedo, he will make sure Dr. Pino sees patient tomorrow -Eliquis initiated in ER, will continue indefinitely -Likely triggered by alcohol overuse, patient advised not to drink alcohol. (2) HTN (hypertension) Current Visit: Yes Status: Chronic Priority: Medium Code(s): I10 - ESSENTIAL (PRIMARY) HYPERTENSION SNOMED Code(s): 41012410 Comment: -Will continue outpatient medications, lisinopril -Toprol XL contributes to rate control Status and Disposition: inpatient
[2018-08-15] MEDS ORDERED: Lisinopril TAB* 5 MG PO SCH (21:00)
[2018-08-16] MEDS: Apixaban* 5 MG TAB PO SCH ×2 (02:00→08:23)
[2018-08-16] MEDS: Diltiazem TAB* 30 MG PO SCH ×3 (05:53→18:39)
[2018-08-16] MEDS ORDERED: Metoprolol Succinate XL TAB* 50 MG PO SCH (09:00)
[2018-08-16 09:15] LABS: Calcium 9.7 mg/dL (8.6-10.3); EGFR African American 69.5 (>60); EGFR Non-African American 57.5 (>60); Magnesium 2.2 mg/dL (1.9-2.7); Potassium 4.5 mmol/L (3.5-5.0)
--- NOTE | 2018-08-16 10:16 | PN ---
Subjective Date of Service: 08/16/18 - CC: irregular heart rate. Interval History: Patient with PMHx PAF, s/p ablation (Dr Kari Kelly), did well, taken off amiodarone and Xarelto. Pt drinking a few beers a day regularly w/o problems. weekend increase beer, 7-8. Noted he was a bit light headed, initially attributed his symptoms to alcohol, but persisted. He tried to check his BP, couldn't get readings and checked his pulse and realized he was likely in afib. Overnight started on Eliquis and rate controlled, now completely unaware his is in afib. PMHx: PAF, s/p ablation Rudy See (2017) Cardiomyopathy, EF 25% w/afib, resolved. HTN EtOH Shingles 2015 ED SHx: , distant smoker, regular drinker of alcohol (per more than he admits to MD's). FHX: + CAD (Father CABG and HTN). + Afib (mother). ROS: Negative for recent fevers, chills, no OTC meds, active, no orthopnea. Admits to resuming alcohol and increased alcohol over the weekend () . All other 11 point review of symptoms negative other than above ROS/HPI. Medications Active Medications: Apixaban (Eliquis*) 5 mg PO BID [facility] Last Admin: 08/16/18 08:23 Dose: 5 mg Diltiazem HCl (Cardizem Tab*) 30 mg PO Q6HR [facility] Last Admin: 08/16/18 05:53 Dose: 30 mg Lisinopril (Prinivil Tab*) 2.5 mg PO BEDTIME [facility] Last Admin: 08/15/18 20:39 Dose: 2.5 mg Metoprolol Succinate (Toprol Xl Tab*) 50 mg PO DAILY [facility] Last Admin: 08/16/18 08:23 Dose: 50 mg Objective Vital Signs: Temp Pulse Resp BP Pulse Ox 97.4 F 100 18 121/74 100 08/16/18 08:17 08/16/18 08:17 08/16/18 08:17 08/16/18 08:17 08/16/18 08:17 Oxygen Devices in Use Now: None Appearance: tall, lean male, ching and some sun burn, appears fit and in no distress. Eyes: No Scleral Icterus Ears/Nose/Mouth/Throat: Clear Oropharnyx, Mucous Membranes Moist Neck: Trachea Midline, No Thyroid Enlargement, Masses Respiratory: Symmetrical Chest Expansion and Respiratory Effort, Clear to Auscultation Cardiovascular: NL Sounds; No Murmurs; No JVD - irregular and tachycardic. Abdominal: NL Sounds; No Tenderness; No Distention, No Hepatosplenomegaly Extremities: No Edema, No Clubbing, Cyanosis Neurological: Alert and Oriented x 3, NL Muscle Strength and Tone Lines/Tubes/Other Access: Clean, Dry and Intact Peripheral IV Laboratory Results: 08/15/18 12:56 08/16/18 08:29 INR (Anticoag Therapy) 0.97 (0.82-1.09) 08/15/18 13:36 Total Bilirubin 0.60 mg/dL (0.2-1.0) 08/15/18 12:56 AST 37 U/L (13-39) 08/15/18 12:56 ALT 40 U/L (7-52) 08/15/18 12:56 Alkaline Phosphatase 30 U/L (34-104) L 08/15/18 12:56 B-Natriuretic Peptide 420 pg/mL (<=100) H 08/15/18 12:56 Total Protein 7.3 g/dL (6.4-8.9) 08/15/18 12:56 Albumin 4.5 g/dL (3.2-5.2) 08/15/18 12:56 Globulin 2.8 g/dL (2-4) 08/15/18 12:56 Albumin/Globulin Ratio 1.6 (1-3) 08/15/18 12:56 TSH 1.89 mcIU/mL (0.34-5.60) 08/15/18 12:56 08/15/18 08/15/18 08/15/18 12:56 15:28 18:30 Troponin I 0.00 0.01 0.00 Diagnostic Imaging: Echo: normal EF, 55%. EKG Data: Atrial fibrillation, rapid ventricular rate, unremarkable ST/T waves. Assessment/Plan 62 yo male with recurrent afib, RVR in setting of increased alcohol intake. Hx severe CM when found in afib in the past. Plan: CHARLES + CV today. Continue Eliquis at least a month. Cutting down or stopping beer recommended, patient is understanding. ADDENDUM: s/p successful CHARLES guided CV. Normal LVEF. Discharge on current outpatient meds + Eliquis. I recommend f/u with Dr Slater 3-6 weeks.
--- NOTE | 2018-08-16 10:45 | ECHO ---
[place] [address] Fax #: [phone] Transthoracic Echocardiogram Patient: Jayro, Height: 73 in / Gordon Wilson 185.4 cm : 1955 Weight: 194.6 lb / Study Date: 08/16/2018 88.5 kg Age: 62 BP: 114 / 65 Gender: M BMI/BSA: 25.7 kg/m^2 HR: 130 bpm / 2.13 m^2 *Shell Coremaker: * Anais Holloway [facility] *Referring Physician: * Marty Wynne *Reading Physician: * Ángela Pino MD Indications: Abnormal EKG. Congestive Heart Failure. History: Atrial fibrillation. Risk factors: Hypertension. Labs, prior tests, procedures, and surgery: Electrophysiology study with ablation. Conclusions Summary: 1. Left ventricle: There is mild concentric hypertrophy. Systolic function is mildly reduced. The estimated ejection fraction is 45-50%. 2. Right ventricle: Systolic function is mildly reduced. 3. Left atrium: The atrium is moderately dilated. 4. Mitral valve: There is mild regurgitation. 5. Tricuspid valve: There is mild-moderate regurgitation. 6. Compared with prior echocardiogram of 08/11/16, ejection fraction has improved from 20-25%. Valve function not significantly changed. Study data: Transthoracic echocardiogram. Procedure: Transthoracic echocardiography was performed. Image quality was good. Complete 2D, spectral Doppler, and color flow Doppler. Location: Bedside. Patient status: Inpatient. Patient room number: 448-1. Findings Left ventricle: The cavity size is normal. There is mild concentric hypertrophy. Systolic function is mildly reduced. The estimated ejection fraction is 45-50%. Wall motion is normal; there are no regional wall motion abnormalities. Left ventricular diastolic function parameters are indeterminate. Right ventricle: The cavity size is at the upper limits of normal. The moderator band is in a normal position. Systolic function is mildly reduced. Left atrium: The atrium is moderately dilated. Right atrium: The atrium is mildly dilated. Mitral valve: The annulus is mildly calcified. The leaflets are mildly thickened. There is no evidence of stenosis. There is mild regurgitation. Aortic valve: The valve is trileaflet. The leaflets are mildly thickened. There is no evidence of stenosis. There is no regurgitation. Tricuspid valve: The leaflets are normal thickness. There is no evidence of stenosis. There is mild-moderate regurgitation. Pulmonic valve: The leaflets are normal thickness. There is no evidence of stenosis. There is trace regurgitation. Aorta: Aortic root: The aortic root is mildly dilated. Ascending aorta: The ascending aorta is upper normal in size. Aortic arch: The aortic arch is appears normal. Pericardium: There is no pericardial effusion. Pulmonary arteries: The main pulmonary artery is normal-sized. Systolic pressure is within the normal range. Systemic veins: Inferior vena cava: The vessel is normal in size. The respirophasic diameter changes are in the normal range (>= 50%). Measurements Left ventricle Value Ref Aortic valve Value Ref AMY, LAX 4.4 cm 4.2 - 5.8 Bella diam, ED 2.1 cm ----- ESD, LAX 3.3 cm 2.5 - 4.0 Peak v, S 0.87 m/sec ----- FS, LAX 25 % 25 - 43 VTI, S 14.0 cm ----- PW, ED, LAX (H) 1.1 cm 0.6 - 1.0 Mean grad, S 2.0 mm Hg ----- FS 25 % 25 - 43 Peak grad, S 3.0 mm Hg ----- PW, ED (H) 1.1 cm 0.6 - 1.0 LVOT/AV, VTI ratio 1 ----- E', lat bella, TDI 12.1 cm/sec >=10.0 E/e', lat bella, 5 Mitral valve Value Ref TDI Peak E 0.57 m/sec ----- E', med bella, TDI 10.2 cm/sec >=7.0 Peak A 0 m/sec --- -- E/e', med bella, 6 Decel time 181 ms ----- TDI E', avg, TDI 11.2 cm/sec Pulmonic valve Value Ref E/e', avg, TDI 5 <=14 Peak v, S 0.92 m/sec --- -- Peak grad, S 3.0 mm Hg ----- LVOT Value Ref Peak davida, S 0.9 m/sec Tricuspid valve Value Ref VTI, S 14.0 cm TR peak v 2.3 m/sec <=2.8 Mean grad, S 2 mm Hg Peak RV-RA grad, S 21 mm Hg ----- Ventricular septum Value Ref Aortic root Value Ref IVS, ED (H) 1.1 cm 0.6 - 1.0 Root diam 3.8 cm <4.2 Right ventricle Value Ref Ascending aorta Value Ref AMY, LAX 3.3 cm AAo AP diam, S 3.6 cm ----- AMY minor ax, A4C (H) 4.2 cm 1.9 - 3.5 mid Aortic arch Value Ref Pressure, S 24 mm Hg Arch diam 2.0 cm ----- Left atrium Value Ref Decending aorta Value Ref AP dim, ES (H) 4.20 cm 3.00 - Suzi peak davida 0.46 m/sec ----- 4.00 ML dim, A4C 4.2 cm Pulmonary artery Value Ref SI dim, A4C 5.9 cm Pressure, S 21.0 mm Hg ----- Vol/bsa, ES, 1-p (H) 39 ml/m^2 12 - 37 A4C Inferior vena cava Value Ref Vol/bsa, ES, A/L (H) 46 ml/m^2 16 - 34 Diam 1.9 cm ----- Right atrium Value Ref SI dim, ES (H) 5.9 cm 3.4 - 5.3 ML dim, ES, A4C 3.7 cm 2.6 - 4.4 SI dim, ES, A4C (H) 5.9 cm 3.4 - 5.3 Estimated RAP 3 mm Hg Legend: (L) and (H) ascencion values outside specified reference range. Prepared and electronically signed by Ángela Pino MD 08/16/2018 10:44
[2018-08-16] MEDS ORDERED: Midazolam* 1 MG/ML 5 ML VIAL (5 MG) ONE (13:53)
[2018-08-16] MEDS ORDERED: Naloxone* 0.4 MG/ML 1 ML VIAL ONE (13:54)
[2018-08-16] MEDS ORDERED: Flumazenil* 0.1 MG/ML 5 ML MDV ONE (13:54)
[2018-08-16] MEDS ORDERED: fentaNYL* 50 MCG/ML 2 ML VIAL (100 MCG VIAL) ONE (13:54)
[2018-08-16] MEDS ORDERED: Lidocaine 2% VISCOUS* 15 ML UDC ONE (14:33)
--- NOTE | 2018-08-16 16:56 | TEE ---
*[facility]* [place] [address] Fax #: [phone] Transesophageal Echocardiogram Patient: Jayro, Height: 72 in / Gordon Rachel 182.9 cm : 1955 Weight: 195 lb / Study Date: 08/16/2018 88.6 kg Age: 62 BP: 121 / 74 Gender: M BMI/BSA: 26.5 kg/m^2 HR: 108 bpm / 2.13 m^2 *Air Export Coordinator: Shweta Parham [facility] *Referring Physician: * Ángela Pino MD *Reading Physician: * Ángela Pino MD Indications: Atrial Fibrillation. History: Risk factors: Hypertension. Labs, prior tests, procedures, and surgery: Electrophysiology study with ablation. Conclusions Summary: 1. Left ventricle: The cavity size is normal. Wall thickness is mildly increased. Systolic function is normal. The estimated ejection fraction is 50-55%. 2. Right ventricle: Systolic function is low normal. 3. Left atrium: The atrium is moderately dilated. There is no evidence of a thrombus in the atrial cavity or appendage. 4. Right atrium: The atrium is mildly dilated. 5. Atrial septum: A PFO is not demonstrated by color Doppler or agitated saline contrast. 6. Mitral valve: There is trace regurgitation. 7. Tricuspid valve: There is mild regurgitation. 8. The decision was made to proceed with cardioversion, see separate report. Study data: Diagnostic Transesophageal Echocardiogram Consent: The risks and benefits of the procedure, including alternatives were discussed with the patient and/or their health care junior sales representative and written informed consent was obtained. Procedure: Initial setup: The patient was brought to the laboratory in the fasting state.Intravenous access was obtained. Surface ECG leads, heart rate, heart rhythm, blood pressure measurements, pulse oximetric signals, and mainstream end-tidal CO2 tracings were monitored throughout the procedure. Sedation. Moderate sedation was administered by nursing staff. History and physical as well as labs were reviewed. An oral bite block was inserted for protection of oral dentition. The patient was placed in the left lateral decubitus position. Topical anesthesia was obtained using viscous lidocaine. A transesophageal probe was inserted by the attending client resource specialist. Transesophageal echocardiography was performed, image quality was fair, and all standard views were attempted within the limitations of patient tolerance and safety. Multiple 2D, color flow Doppler and spectral Doppler images were obtained. The transesophageal probe was removed. A bubble study was performed. Location: Procedure room. Patient status: Inpatient. Patient room number: 448 01. Study completion: The patient tolerated the procedure well. There were no complications. Administered medications: Midazolam, 10mg. Fentanyl, 100mcg. Rhythm: Atrial fibrillation. Findings Left ventricle: The cavity size is normal. Wall thickness is mildly increased. Systolic function is normal. The estimated ejection fraction is 50-55%. Left ventricular diastolic function parameters are indeterminate. Right ventricle: The cavity size is normal. Systolic function is low normal. Left atrium: The atrium is moderately dilated. Emptying velocity is normal. There is no evidence of a thrombus in the atrial cavity or appendage. There is spontaneous echo contrast ("smoke"). Right atrium: The atrium is mildly dilated. Atrial septum: A PFO is not demonstrated by color Doppler or agitated saline contrast. Mitral valve: The annulus is mildly calcified. The leaflets are normal thickness. There is no evidence of stenosis. There is trace regurgitation. Aortic valve: The valve is trileaflet. The leaflets are normal thickness. There is no evidence of stenosis. There is no significant regurgitation. Tricuspid valve: The leaflets are normal thickness. There is no evidence of stenosis. There is mild regurgitation. Pulmonic valve: The leaflets are normal thickness. There is no evidence of stenosis. There is no significant regurgitation. Aorta: Aortic root: The aortic root is mildly dilated. Ascending aorta: The ascending aorta is appears normal. Pericardium: There is no significant pericardial effusion. Pulmonary arteries: The main pulmonary artery is normal-sized. Systemic veins: Inferior vena cava: The vessel is normal in size. Superior vena cava: The vessel is appears normal. Pulmonary veins: The flow of the pulmonary veins appears normal. Measurements Aortic valve Value 08/16/2018 Ref Tricuspid valve Value 08/16/2018 Ref Sepideh diam, ED 2.2 cm 2.1 ---- Peak grad, D 12.2 mm Hg ----- TR peak v 1.7 m/sec 2.3 <=2. 8 Mitral valve Value 08/16/2018 Ref Peak E 0.51 m/sec 0.57 ---- Aortic root Value 08/16/2018 Ref Peak A 0.03 m/sec 0 ---- Root diam 3.6 cm 3.8 <4.2 Decel time 110 ms 181 ---- Peak E/A ratio 14.67 ---- Ascending aorta Value 08/16/2018 Ref AAo AP diam, 3.2 cm 3.6 ----- S Legend: (L) and (H) ascencion values outside specified reference range. Prepared and electronically signed by Ángela Pino MD 08/16/2018 16:55
[2018-08-16 18:18] VITALS: BP 116/79
--- NOTE | 2018-08-17 00:02 | DS ---
CC: Bonilla Nugent MD; Dr. Slater* DISCHARGE SUMMARY: DATE OF ADMISSION: 08/15/18 DATE OF DISCHARGE: 08/16/18 PRIMARY CARE PROVIDER: Bonilla Nugent MD OUTPATIENT WOMEN'S SWIM COACH: Dr. Slater. ATTENDING PHYSICIAN: Dr. Jasmin Ellis* (dictated by Gunnar Reddy NP). PRIMARY DIAGNOSES: 1. Atrial fibrillation. 2. Hypertension. CONSULTATION WHILE IN THE HOSPITAL: Dr. Ángela Pino from Cardiology. PROCEDURE WHILE IN THE HOSPITAL: CHARLES with cardioversion. DISCHARGE HOME MEDICATIONS: Continued home medications: 1. Josey 180 mg p.o. daily. 2. Metoprolol succinate XL 50 mg p.o. daily. 3. Lisinopril 2.5 mg p.o. daily. New home medications: Eliquis 5 mg p.o. b.i.d. x30 days. Changed home medications: No home medications changed. HISTORY OF PRESENT ILLNESS/HOSPITAL COURSE: Mr. Dial is a 62-year-old male with a past medical history of paroxysmal atrial fibrillation and hypertension who presented to the emergency department on 08/15/18 with heart palpitations and racing heart. Please see history and physical dictated by Marty Wynne MD, for further details and events leading up to the hospitalization, but in short, the patient presented with the above-mentioned symptoms and was found to be in atrial fibrillation with RVR. While in the emergency department, he was given IV diltiazem and had good control; therefore, oral diltiazem was continued. The plan was for the patient to undergo a cardioversion with CHARLES this morning, which occurred. The patient was admitted to telemetry. The patient had an uneventful night as his vital signs remained stable with the exception of his heart rate in atrial fibrillation in the 100s to 120s. This afternoon, the patient was taken to the [facility] and underwent a CHARLES with cardioversion. The patient returned to the telemetry floor and has been in sinus rhythm. The patient is stable for discharge home today. I discussed the patient's discharge with Dr. Ángela Pino who agrees with his discharge. REVIEW OF SYSTEMS: A 14-point review of systems was completed and all were negative. PHYSICAL EXAMINATION: Vital Signs: Temp 97.8, HR 62, RR 16, O2 saturation 99% on room air, BP 114/72. General: Mr. Dial is a 62-year-old male who was sitting in bed, appears to be in no acute distress, appears stated age. HEENT: EOMs are intact. PERRLA. Oral mucosa is moist without lesions. Posterior pharynx is clear. Neck: Supple. No lymphadenopathy. Cardiac: S1, S2 present. No murmur, rubs, or gallops. Regular rate and rhythm. Respiratory: Lungs are clear to auscultation. No wheezes, rhonchi, or rubs. Good aeration. Abdomen: Soft, nontender. Bowel sounds are normoactive. Extremities: No edema. No clubbing or cyanosis. Pedal pulses are 2+ bilaterally. Musculoskeletal: No pain or deformities. Skin: Skin is intact. Neuro: Neuro exam is grossly intact. No focal deficits or weakness noted. DIAGNOSTIC STUDIES/LABORATORY DATA: WBC 7.3, hemoglobin 14.9, hematocrit 44, platelet 280. Sodium 138, potassium 4.5, chloride 101, carbon dioxide 29, BUN 19, creatinine 1.27, glucose 101. Troponin 0.00. Vitamin B12 of 252. Transthoracic Echo: Left ventricle: There is mild concentric left hypertrophy. Systolic function is mildly reduced. Estimated ejection fraction of 45% to 50%. Right ventricle: Systolic function is mildly reduced. Left ____ __: The atrium is moderately dilated. Mitral valve: There is mild regurgitation. Tricuspid valve: There is [id number] regurgitation. Compared to prior echocardiogram on 08/11/16, ejection fraction has improved from 20% to 25%. Valve function not significantly changed. Chest x-ray, impression: No active cardiopulmonary disease. DISCHARGE PLAN/FOLLOWUP: 1. AFib with RVR, status post CHARLES with cardioversion: As mentioned above, the patient was successfully cardioverted and is now in sinus rhythm. The patient should continue his home medications of lisinopril 2.5 mg and metoprolol XL 50 mg p.o. daily. In addition to his medications, the patient has been prescribed Eliquis 5 mg p.o. b.i.d. x30 days. The patient is to follow up with Dr. Slater in the next 3 days. The patient states understanding. The patient is aware when he goes into atrial fibrillation and understands the importance of going to the emergency room if it reoccurs. 2. Hypertension: The patient should continue his outpatient medications of lisinopril and Toprol-XL. The patient will follow up with Dr. Slater as mentioned above. 3. Elevated creatinine. As mentioned above in laboratory data, the patient's creatinine was 1.27. The patient's creatinine on 08/12/18 and 08/13/18 was also elevated at 1.31. It is unclear the patient's baseline; therefore, I would recommend the patient to follow up with his primary care in 1 week for repeat CMP. 4. B12: A B12 was obtained given the patient's elevated MCV and MCH. His B12 was in the low end of normal at 252. I would recommend the patient to supplement with vitamin B12. 5. Followup: As mentioned above, the patient is to follow up with Dr. Slater in 3 days. The patient is to follow up with his primary care in 1 to 3 days. 6. Education: The patient was educated on signs and symptoms of new or worsening condition and when to return to the emergency department and he states understanding. TIME SPENT: Approximately 35 minutes was spent on this discharge, greater than half of the time was spent [id number] with the patient in explaining, discussing discharge plans and instructions. This is a summarized report of a complex medical history and hospital stay. For further details, please see the entire medical record. PLAN: This plan was discussed with my attending, Dr. Ellis, who is agreement with my plan of care. GUNNAR REDDY, GISEL [id number]/[facility] #: [id number] SHANNON
--- NOTE | 2018-08-17 10:47 | CARD ---
CC: Dr. Nugent; Dr. Slater* ELECTRICAL CARDIOVERSION: DATE OF PROCEDURE: 08/16/18 PRE-PROCEDURE DIAGNOSIS: Atrial fibrillation, uncertain duration, not on anticoagulation. POST-PROCEDURE DIAGNOSIS: Atrial fibrillation, uncertain duration, not on anticoagulation. The indications, risks and benefits of combined transesophageal echo and cardioversion were discussed with the patient. He was amendable to proceeding. The transesophageal echo was documented separately. For both procedures, the patient received a total of 10 mg of Versed and 100 mcg of fentanyl for sedation. No evidence of thrombus was noted in the left atrial appendage and the decision was made to proceed with cardioversion. DESCRIPTION OF PROCEDURE: AP patches have been applied to the patient. The time- out for both procedures had previously been done. The patient received a total of 120 joules synchronously delivered across the chest wall with successful cardioversion and normal sinus rhythm. The patient was hemodynamically stable throughout the procedure and during recovery and there were no complications. CONCLUSION: Successful cardioversion from atrial fibrillation to normal sinus rhythm. [id number]/[facility] #: [id number] SHANNON
== END 2018-08-16 19:15 | disposition home or self-care (01) ==
LOC: ED 12:15 → MEDTELE 15:46
PROVIDERS: ADMIT Internal Medicine; ATTEND Internal Medicine
DX: I48.91 Unspecified atrial fibrillation (principal); I10 Essential (primary) hypertension; R00.2 Palpitations; Z86.19 Personal history of other infectious and parasitic diseases
CPT/HCPCS: 36415; 71045; 80048; 80053; 82607; 83605; 83735; 83880; 84439; 84443; 84484; 85025; 85610; 92960; 93005; 93306; 93312; 93325; 96374; 99156; 99157; 99283; A9270-GY; G0378; J2250; J2310; J3010